=== PATIENT | male | born 1960 | race Caucasian/White ===

== ENCOUNTER 2016-10-13 06:16 | Emergency (ER) | payer OTHER ==
[~2016-10-13] VITALS: Ht 185.4 cm; Wt 116.0 kg
[~2016-10-13 06:16] MED LIST: METO50TA11 PO; RAMI10CA35 PO
[2016-10-13 06:17] VITALS: BP 179/91; PULSE 77; RESP 16; TEMP 97.8; O2SAT 97
[2016-10-13] MEDS ORDERED: TOPR50TA PO (06:25)
[2016-10-13] MEDS ORDERED: SIMV40TA PO (06:25)
--- NOTE | 2016-10-13 06:42 | PD ---
HPI Chief Complaint: Skin Problem Time Seen by Provider: 06:38 Travel History International Travel<30 days: No Contact w/Intl Traveler<30days: No Traveled to known affect area: No History of Present Illness HPI 56-year-old white male presents to emergency department with complaints of a rash to both hands now for the past week. He states that this started off as a small area of redness with small vesicular bumps. He had cover the area with Dermabond. 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 He states that after a case the skin has peeled off revealing weeping sores. He states that is mildly pruritic. He does not recall any new causative agent. He states that he has not changed any new soaps, gloves or any other environmental changes. He is up-to-date with immunizations. He has not been sick recently. He states that he takes ramipril for blood pressure and would like to get a refill. PFSH Past Medical History Narrative Medical Coronary artery disease, ND, hypertension, hypercholesterolemia Cardiac Catheterization: Yes (2006- circumflex EF-55% ) Cardiovascular Problems: Yes Chest Pain: Yes Diminished Hearing: No Hypertension: Yes Tetanus Vaccination: < 5 Years Influenza Vaccination: Yes Past Surgical History Appendectomy: Yes Oral Surgery: Yes (right knee bone spur) Tonsillectomy: Yes Social History Alcohol Use: Yes (occasional) Tobacco Use: No Substance Use: No Allergies-Medications (Allergen,Severity, Reaction): Coded Allergies: No Known Allergies (Unverified , 10/13/16) Reported Meds & Prescriptions Reported Meds & Active Scripts Active Reported Simvastatin 40 Mg Tab 40 Mg PO HS Toprol XL (Metoprolol Succinate) 50 Mg Tab 50 Mg PO DAILY Review of Systems Except as stated in HPI: all other systems reviewed are Neg Physical Exam Narrative GENERAL: This is a well-nourished, well-developed patient, in no apparent distress. SKIN: Patient has a scaly moist dermatitis to both hands over the interdigital web space of the index and thumb. This is bilateral. The skin is mildly erythematous him a broken down and weeping. There are a few scattered surrounding superficial vesicular type lesions. This appears to be a contact type dermatitis. No signs of wound infection. No purulent drainage. HEAD: Atraumatic. Normocephalic. EYES: PERRL, EOMI, no discharge or injection. No scleral icterus. EARS: Clear NOSE: Nasal turbinates appear normal. THROAT: Mucosa pink and moist. Airway patent. NECK: Trachea midline. supple, moves head freely. LUNGS: Clear to auscultation. CV: Regular in rhythm. ABDOMEN: Soft nontender. EXT: No clubbing cyanosis or edema. Data Data Last Documented VS Vital Signs Date Time Temp Pulse Resp B/P Pulse Ox O2 Delivery O2 Flow Rate FiO2 10/13/16 06:23 16 10/13/16 06:17 97.8 77 179/91 97 Room Air MDM Medical Decision Making Medical Screen Exam Complete: Yes Emergency Medical Condition: Yes Medical Record Reviewed: Yes Differential Diagnosis MDM: High Differential diagnoses: Abscess, folliculitis, cellulitis, lymphangitis, abrasion, contact dermatitis Narrative Course This is contact dermatitis The patient cannot determine the dose of his blood pressure medicine. I explained to them that I do not feel comfortable refilling his medication that were not sure of the dose. Diagnosis Primary Impression: Contact dermatitis Qualified Code: L24.9 - Irritant contact dermatitis, unspecified trigger Patient Instructions: General Instructions Additional Instructions: Rest. Daily wound care with soap, water, story cream. Follow-up with employee med in the next 3-5 days. Keep clean and dry. Daily blood pressures. Med/Other Pt SpecificInfo: Prescription(s) given Scripts Betamethasone Dipropionate Aug Topical (Diprolene Topical)0.05% Oint1 Applic TOPICAL BID #15 GM Prov:Dianne Mtz MD 10/13/16 Disposition: 01 DISCHARGE HOME Condition: Stable Ivan Steve Oct 13, 2016 06:42
[2016-10-13] MEDS ORDERED: DIPR0.053 TOPICAL (06:45)
== END 2016-10-13 07:02 | disposition home or self-care (01) ==
LOC: NEPA 06:16
DX: L24.9 Irritant contact dermatitis, unspecified cause (principal)
CPT/HCPCS: 99283

== ENCOUNTER → 2016-12-24 | Outpatient (CLI) | payer OTHER ==
[~2016-12-24] MED LIST changes: +DIPR0.053 TOPICAL; -METO50TA11 PO; -RAMI10CA35 PO; +SIMV40TA PO; +TOPR50TA PO
== END ==
LOC: CLAB 14:53
DX: L25.9 Unspecified contact dermatitis, unspecified cause (principal)
CPT/HCPCS: 36415; 82785; 86003

== ENCOUNTER 2018-09-05 11:02 | Inpatient (IN) ==
[2018-09-05 12:12] LABS: Baso % (Auto) 0.1 % (0.0-2.0); Eos % (Auto) 0.1 % (0.0-4.0); Hemoglobin 15.8 gm/dL (13.0-17.0); Lymph # (Auto) 1.6 th/mm3 (1.0-4.8); Lymph % (Auto) 11.8 % (9.0-44.0); Mean Corpuscular HGB Conc 34.5 % (32.0-36.0); Mean Corpuscular Volume 87.1 fL (80.0-100.0); Mean Platelet Volume 6.6 fL (7.0-11.0); Mono # (Auto) 1.3 th/mm3 (0.0-0.9); Neut # (Auto) 10.2 th/mm3 (1.8-7.7); Platelet Count 257 th/mm3 (150-450); Red Blood Count 5.28 mil/mm3 (4.50-5.90); Red Cell Distribution Width 12.8 % (11.6-17.2); White Blood Count 13.1 th/mm3 (4.0-11.0)
[2018-09-05 12:21] LABS: Activated Partial Thrombo Time 25.8 sec (23.4-31.7); Prothrombin Time 10.5 sec (9.8-11.6)
[2018-09-05 12:33] LABS: Anion Gap 11 meq/L (5-15); Aspartate Aminotransferase 36 U/L (15-37); Blood Urea Nitrogen 18 mg/dL (7-18); Calcium 8.9 mg/dL (8.5-10.1); Chloride 100 meq/L (98-107); Glomerular Filtration Rate 72 mL/min (>89); Glucose,Random 143 mg/dL (74-106); Potassium 3.8 meq/L (3.5-5.1); Sodium 134 meq/L (136-145)
[2018-09-05 12:34] LABS: Alanine Aminotransferase 38 U/L (12-78)
[2018-09-05 12:38] LABS: Alkaline Phosphatase 96 U/L (45-117); Creatine Kinase 99 U/L (39-308); Total Protein 7.5 g/dL (6.4-8.2)
--- NOTE | 2018-09-05 12:47 | XR ---
EXAM DATE: 09/05/2018 12:42 PM EST AGE/SEX: 58 years / Male INDICATIONS: Chest pain started this morning. CLINICAL DATA: This is the patient's initial encounter. Patient reports that signs and symptoms have been present for 1 day and indicates a pain score of 10/10. MEDICAL/SURGICAL HISTORY: Cardiovascular disease. Asthma. Coronary artery stent. COMPARISON: [facility] [place] AP, 11/12/2015. . FINDINGS: A single AP view of the chest demonstrates the lungs to be symmetrically aerated without evidence of mass, infiltrate or effusion. The cardiomediastinal contours are unremarkable. Osseous structures a re intact. CONCLUSION: Negative for acute process Electronically signed by: Yaron Jacobson MD Board Certified Radiologist 09/05/2018 12:45 PM EST
--- NOTE | 2018-09-05 13:07 | ED ---
HPI General Chief Complaint: Chest Pain Stated Complaint: Chest Pain Complaint Time Seen by Provider: 09/05/18 11:33 Source: patient, RN notes reviewed and old records reviewed Mode of arrival: ambulatory Limitations: no limitations History of Present Illness HPI narrative: 58-year-old male presents to the emergency department for evaluation of chest pain. Patient states he woke up around 3 AM, feeling achy all over. 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 He states he got to work and was just not feeling well. Patient states that during his OR case, he feels like his eyes got blurry and then he became nauseous and had to take a break. He states he had some dry heaves about 9 AM. He drinks of water and then went back to the OR. However, then he became diaphoretic and hot. He states he was pale. He ate and drank and then checked his glucose which is 166. He states his blood pressure was really good for him, 130s systolic. Patient states that he left to go home about 1038. He got up to [facility] when he felt some crushing left-sided chest pain in a band around his chest. He turned around and came back here. He states the pain lasted 5-10 minutes and now he is pain-free. He has been pain-free since then. He took 2 full aspirins today. He is not established with a software sales manager. He states that in 2003, he had 2 stents placed. He has history of hypertension, hyperlipidemia. He quit smoking in 2003. Moderate severity. No recent surgery or travel. No hemoptysis. No leg edema. MD complaint: Reports chest pain STEMI Alert: No Onset (ago): hour(s) Duration: now resolved Onset: during rest Pain location: Reports left chest Severity: moderate Quality: Reports tightness and heaviness Pain radiation: Reports none Exacerbating factors: nothing Associated symptoms: Reports nausea and diaphoresis; Denies vomiting, dyspnea, sense of impending doom, syncope, palpitations, fever, cough and leg swelling Treatments prior to arrival chest pain: Reports aspirin Related Data Home Medications Medication Instructions Recorded Confirmed aspirin 325 mg PO DAILY 09/05/18 09/05/18 metoprolol succinate 50 mg PO DAILY 09/05/18 09/05/18 ramipril 10 mg PO DAILY 09/05/18 09/05/18 simvastatin 40 mg PO QPM 09/05/18 09/05/18 Allergies Allergy/AdvReac Type Severity Reaction Status Date / Time latex Allergy Hives Verified 09/05/18 11:22 Review of Systems ROS: all other systems reviewed are negative [facility] Medical History Medical History Hyperlipemia (Acute) Hypertension (Acute) Surgical History Surgical History H/O adenoidectomy (Acute) History of appendectomy (Acute) Hx of tonsillectomy (Acute) Stented coronary artery (Acute) Social History Social History Substance History: No History of Abuse Second Hand Smoke Exposure: No Smoking Status: Former smoker How Often Do You Have a Drink Containing Alcohol: Never Recent Travel in [facility] within the Last 8 Weeks: No Recent Out of Country Travel within the Last 8 Weeks: No Immunization History Tetanus Immunization: >5 Years Exam Narrative Exam Narrative: GENERAL: Well-nourished, well-developed male patient, ambulatory. Afebrile. SKIN: Focused skin assessment warm/dry. HEAD: Normocephalic. Atraumatic. ENT: Mucosa pink and moist. No erythema or exudates. No uvular edema. No uvular , palatal, or tonsillar deviation. Airway patent. Nasal turbinates appear normal without nasal blood, purulent drainage or septal hematoma. Bilateral tympanic membranes clear without erythema or perforation. EYES: No scleral icterus. No injection or drainage. NECK: Supple, trachea midline. No JVD or lymphadenopathy. CARDIOVASCULAR: Regular rate and rhythm without murmurs, gallops, or rubs. Bilateral radial and pedal pulses are 2+ RESPIRATORY: Breath sounds equal bilaterally. No accessory muscle use. Patient has some mild expiratory wheezes noted throughout. GASTROINTESTINAL: Abdomen soft, non-tender, nondistended. MUSCULOSKELETAL: No cyanosis, or edema. BACK: Nontender without obvious deformity. No CVA tenderness. Course Initial Documented Vital Signs Temperature 98.7 F 09/05/18 11:23 Pulse Rate 105 H 09/05/18 11:23 Respiratory Rate 18 09/05/18 11:23 Blood Pressure 181/96 H 09/05/18 11:23 Pulse Oximetry 96 01/07/19 11:23 Last Documented Vital Signs Temperature 98.7 F 09/05/18 11:23 Pulse Rate 90 09/05/18 12:24 Respiratory Rate 18 09/05/18 12:24 Blood Pressure 181/96 H 09/05/18 11:23 Pulse Oximetry 96 09/05/18 12:08 Medical Decision Making MARIBEL Attestation MARIBEL supervised visit: Yes Attestation: I, Dr. Guy, have reviewed the advance practice practitioner's documentation and am in agreement, met with the patient face to face, made the diagnosis, and the medical decision making was done by me. *My assessment and Findings: Patient had 5-10 minutes of suspicious chest discomfort. However he is pain-free now and initial workup is negative. He has known CAD. He will be of 23-hour observation in the chest pain center. He is agreeable. MDM Narrative Medical decision making narrative: 58-year-old male presents to the emergency department for evaluation of chest pain. His chest pain is now resolved. IV access obtained. EKG, CBC, CMP, magnesium, CK, troponin, PTT, PT/INR, chest x- ray are ordered and pending. Patient is given DuoNeb x1 for wheezing. He reports history of asthma. He denies any shortness of breath. EKG shows sinus rhythm, heart rate 83, no acute ST changes. CBC shows mild leukocytosis 13.1. CMP shows no acute abnormality. Magnesium is 2.0. CK is 99. Troponin is less than 0.02. PTT is 25.8. PT is 10.5. INR is 1.0. Chest x-ray is negative for acute process. Patient has been monitored in the emergency department has remained chest pain- free. He will be admitted to the chest pain center for further evaluation. The patient agrees to this. Medical Screen Exam Complete: Yes Emergency Medical Condition: Yes Differential Diagnosis Differential Diagnosis: ACS versus pneumonia versus pneumothorax versus versus chest wall pain versus anxiety versus PE Medical Records Medical records reviewed: Yes I reviewed the patient's medical records. Lab Data Result diagrams: 09/05/18 12:00 09/05/18 12:00 Lab Results 09/05/18 09/05/18 09/05/18 Range/Units 12:00 12:00 12:00 WBC 13.1 H (4.0-11.0) th/mm3 RBC 5.28 (4.50-5.90) mil/mm3 Hgb 15.8 (13.0-17.0) gm/dL Hct 46.0 (39.0-51.0) % MCV 87.1 (80.0-100.0) fL MCH 30.0 (27.0-34.0) pg MCHC 34.5 (32.0-36.0) % RDW 12.8 (11.6-17.2) % Plt Count 257 (150-450) th/mm3 MPV 6.6 L (7.0-11.0) fL Neut % (Auto) 78.0 H (16.0-70.0) % Lymph % (Auto) 11.8 (9.0-44.0) % [place] % (Auto) 10.0 H (0.0-8.0) % Eos % (Auto) 0.1 (0.0-4.0) % Baso % (Auto) 0.1 (0.0-2.0) % Neut # (Auto) 10.2 H (1.8-7.7) th/mm3 Lymph # (Auto) 1.6 (1.0-4.8) th/mm3 [place] # (Auto) 1.3 H (0.0-0.9) th/mm3 Eos # (Auto) 0.0 (0.0-0.4) th/mm3 Baso # (Auto) 0.0 (0.0-0.2) th/mm3 WBC Differential . Differential Comment Auto diff final PT 10.5 (9.8-11.6) sec INR 1.0 Ratio APTT 25.8 (23.4-31.7) sec Sodium 134 L (136-145) meq/L Potassium 3.8 (3.5-5.1) meq/L Chloride 100 (98-107) meq/L Carbon Dioxide 23.0 (21.0-32.0) meq/L Anion Gap 11 (5-15) meq/L BUN 18 (7-18) mg/dL Creatinine 1.06 (0.60-1.30) mg/dL Estimated GFR 72 L (>89) mL/min Random Glucose 143 H (74-106) mg/dL Calcium 8.9 (8.5-10.1) mg/dL Magnesium 2.0 (1.5-2.5) mg/dL Total Bilirubin 1.0 (0.2-1.0) mg/dL AST 36 (15-37) U/L ALT 38 (12-78) U/L Alkaline Phosphatase 96 (45-117) U/L Total Creatine Kinase 99 (39-308) U/L Troponin I Less than 0.02 L (0.02-0.05) ng/mL Total Protein 7.5 (6.4-8.2) g/dL Albumin 4.0 (3.4-5.0) g/dL Imaging Data Radiologist's impression: Chest X-Ray 09/05/18 11:47 CONCLUSION: Negative for acute process Discharge Plan Discharge Disposition Patient Disposition: ED Admit(ED Internal Use Only) Discharge Details Diagnosis: Chest pain Physicians Team ED Provider: Heladio Guy ED Midlevel Provider: Genevieve Cherry Primary Care Provider: UNKNOWN, Rxs /Orders / Referrals /Forms Prescriptions: No Action aspirin 325 mg Tablet 325 mg PO DAILY RF: 0 metoprolol succinate 50 mg Tablet Extended Release 24 Hr 50 mg PO DAILY RF: 0 simvastatin 40 mg Tablet 40 mg PO QPM RF: 0 ramipril 10 mg Capsule 10 mg PO DAILY RF: 0 Discharge Instructions Patient Printed Instructions: Chest Pain (ED) Status ED Status: With Doctor
[2018-09-05] MEDS ORDERED: Acetaminophen 500 MG Tablet PO PRN (14:08)
--- NOTE | 2018-09-05 14:53 | P.HPCA ---
History of Present Illness Primary Care Physician: UNKNOWN Chief Complaint: Chest pain History of Present Illness: 58-year-old male with known coronary artery disease, x2 cardiac stents, and hypertension presents emergency room for further evaluation of chest pain. 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 Prior to surgical case reported nausea and "dry heaving." During a surgical case initially felt lightheaded with blurred vision, requiring him to walked out of the OR. Symptoms resolved within a few minutes. Upon returning to OR reports becoming diffusely diaphoretic and nauseous. Denies any chest pain during with above symptoms. It was at this time, he was sent to Er for further evaluation. Initially decided not to go to ER and walked his car. Once in car developed substernal crushing pressure. Described as a tight band around the center of his chest. At this time he walked to ER for further evaluation. No associated symptoms of nausea, vomiting, dyspnea, or diaphoresis. Duration 10 minutes. No precipitating or relieving factors. States discomfort resolved on its own prior to medication given in ER. States EKG was completed during time of chest pain. Denies similar pain in the past, did not remind him of past cardiac pain when x2 cardiac stents where placed in 2003. Does not follow with a golf course assistant. No further chest pain and currently chest pain free. Past cardiac testing 11/12/15 Lexiscan Conclusion: Decreased ejection fraction of 44% with possible dilated chamber. Some decreased perfusion to anterior wall without dyskinetic or dysrhythmic areas. (Dr. Montes reviewed the images of patient's Lexiscan and found to be nonischemic and was discharged home increasing Lamisil to 10 mg daily.) 2003 x2 cardiac stents in circumflex and diagonal Social history Known hypertension and coronary artery disease. Prescribed a moderate dose cholesterol medication. Denies diabetes. Former smoker, quit 2003. 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 - Diagnosis (1) Chest pain, rule out acute myocardial infarction (2) Coronary artery disease (3) Hypertension Review of Systems All other systems reviewed negative except as stated in HPI [facility] - History History Provided By: Patient - Medical History Medical History: Medical History (Last Updated 09/05/18 @ 17:00 by DODIE Guidry) Coronary artery disease Hyperlipemia Hypertension - Surgical History Surgical History: Surgical History (Last Reviewed 09/05/18 @ 17:00 by DODIE Guidry) H/O adenoidectomy History of appendectomy Hx of tonsillectomy Stented coronary artery - Tobacco History Second Hand Smoke Exposure: No Smoking Status: Former smoker (quit 2003) - Alcohol History How Often Do You Have a Drink Containing Alcohol: Never - Substance Use History Substance History: No History of Abuse - Travel History Recent Travel in the [place] Within the Last 8 Weeks: No Recent Travel Out of the Country Within the Last 8 Weeks: No - Immunization History Tetanus Immunization: >5 Years Medications and Allergies Active Medications: Active Medications Acetaminophen (Tylenol) 500 mg PO Q4H PRN PRN Reason: HEADACHE Nitroglycerin (Nitrostat Sl) 0.4 mg SL Q5M PRN PRN Reason: CHEST PAIN Ondansetron HCl (Zofran Inj) 4 mg IV.PUSH Q6H PRN PRN Reason: NAUSEA Sodium Chloride (Ns Flush) 2 ml IV.FLUSH UNSCH PRN PRN Reason: FLUSH AFTER USING IV ACCESS Sodium Chloride (Ns Flush) 2 ml IV.FLUSH BID BINH Allergies Allergy/AdvReac Type Severity Reaction Status Date / Time latex Allergy Hives Verified 09/05/18 11:22 Home Medications Medication Instructions Recorded Confirmed Type aspirin 325 mg PO DAILY 09/05/18 09/05/18 History metoprolol succinate 50 mg PO DAILY 09/05/18 09/05/18 History ramipril 10 mg PO DAILY 09/05/18 09/05/18 History simvastatin 40 mg PO QPM 09/05/18 09/05/18 History Exam Vital signs: Vital Signs 09/05/18 11:23 09/05/18 12:08 09/05/18 12:24 Temperature 98.7 F Pulse Rate 105 H 96 H 90 Respiratory Rate 18 18 Blood Pressure 181/96 H Pulse Oximetry 96 96 09/05/18 14:50 Temperature Pulse Rate 92 H Respiratory Rate 18 Blood Pressure 145/68 H Pulse Oximetry 98 Intake & Output 09/04/18 09/05/18 09/05/18 18:59 06:59 18:59 Weight 117.934 kg Narrative: GENERAL: Alert WN, WD, NAD, pleasant, obese, male HEAD: NC, AT EYES: Sclera clear, conjunctiva without injection, pupils equal and round ENT: Mucous membranes pink and moist NECK: Supple, no masses, trachea midline CV: RRR, without murmur, rub, gallop RESP: Clear lungs throughout bilateral, no crackles, wheeze, rhonchi, symmetrical chest rise, nonlabored, able to speak in full sentences ABD: Soft, NT, ND, no masses, positive bowel tones EXT: Pulses +2x4, no dependent edema MS: Normal tone x4 extremities, nontender, no obvious deformities, full range of motion NEURO: Motor strength 5/5, gait WNL PSYCH: A+O x3, pleasant affect, appropriate speech, mood, insight and judgment SKIN: Normal turgor, normal texture, no lesions, no rashes, brisk cap refill, even hair distribution Results 09/05/18 12:00 09/05/18 12:00 Cardiac Enzymes 09/05/18 Range/Units 12:00 AST 36 (15-37) U/L Troponin I Less than 0.02 L (0.02-0.05) ng/mL Coagulation 09/05/18 Range/Units 12:00 PT 10.5 (9.8-11.6) sec APTT 25.8 (23.4-31.7) sec CBC 09/05/18 Range/Units 12:00 WBC 13.1 H (4.0-11.0) th/mm3 RBC 5.28 (4.50-5.90) mil/mm3 Hgb 15.8 (13.0-17.0) gm/dL Hct 46.0 (39.0-51.0) % Plt Count 257 (150-450) th/mm3 Neut # (Auto) 10.2 H (1.8-7.7) th/mm3 Lymph # (Auto) 1.6 (1.0-4.8) th/mm3 [place] # (Auto) 1.3 H (0.0-0.9) th/mm3 Eos # (Auto) 0.0 (0.0-0.4) th/mm3 Baso # (Auto) 0.0 (0.0-0.2) th/mm3 Comprehensive Metabolic Panel 09/05/18 Range/Units 12:00 Sodium 134 L (136-145) meq/L Potassium 3.8 (3.5-5.1) meq/L Chloride 100 (98-107) meq/L Carbon Dioxide 23.0 (21.0-32.0) meq/L BUN 18 (7-18) mg/dL Creatinine 1.06 (0.60-1.30) mg/dL Calcium 8.9 (8.5-10.1) mg/dL AST 36 (15-37) U/L ALT 38 (12-78) U/L Alkaline Phosphatase 96 (45-117) U/L Total Protein 7.5 (6.4-8.2) g/dL Albumin 4.0 (3.4-5.0) g/dL Intake and Output 09/04/18 09/05/18 09/05/18 22:59 06:59 14:59 Other: Weight 117.934 kg Patient Weight 09/06/18 06:59 Weight 117.934 kg - Imaging and Cardiology Imaging: Impressions Chest X-Ray 09/05/18 11:47 CONCLUSION: Negative for acute process EKG interpretations - EKG EKG results cardiology: sinus rhythm, normal axis, normal QRS, normal ST/T Caprini VTE Risk Assessment Caprini VTE Risk Assessment: No/Low Risk (score <= 1) Caprini Risk Assessment Model: Point Value = 1 Point Value = 2 Point Value = 3 Point Value = 5 Age 41-60 Minor surgery BMI > 25 kg/m2 Swollen legs Varicose veins or History of unexplained or recurrent spontaneous Oral contraceptives or hormone replacement Sepsis (< 1 month) Serious lung disease, including pneumonia (< 1 month) Abnormal pulmonary function Acute myocardial infarction Congestive heart failure (< 1 month) History of inflammatory bowel disease Medical patient at bed rest Age 61-74 Arthroscopic surgery Major open surgery (> 45 min) Laparoscopic surgery (> 45 min) Malignancy Confined to bed (> 72 hours) Immobilizing plaster cast Central venous access Age >= 75 History of VTE Family history of VTE Factor V Leiden Prothrombin [id number] Lupus anticoagulant Anticardiolipin antibodies Elevated serum homocysteine Heparin-induced thrombocytopenia Other congenital or acquired thrombophilia Stroke (< 1 month) Elective arthroplasty Hip, pelvis, or leg fracture Acute spinal cord injury (< 1 month) Prophylaxis Regimen: Total Risk Factor Score Risk Level Prophylaxis Regimen 0-1 Low Early ambulation 2 Moderate Order ONE of the following: *Sequential Compression Device (SCD) *Heparin 5000 units SQ BID 3-4 Higher Order ONE of the following medications: *Heparin 5000 units SQ TID *Enoxaparin/Lovenox 40 mg SQ daily (WT < 150 kg, CrCl > 30 mL/min) *Enoxaparin/Lovenox 30 mg SQ daily (WT < 150 kg, CrCl > 10-29 mL/min) *Enoxaparin/Lovenox 30 mg SQ BID (WT < 150 kg, CrCl > 30 mL/min) AND/OR *Sequential Compression Device (SCD) 5 or more Highest Order ONE of the following medications: *Heparin 5000 units SQ TID (Preferred with Epidurals) *Enoxaparin/Lovenox 40 mg SQ daily (WT < 150 kg, CrCl > 30 mL/min) *Enoxaparin/Lovenox 30 mg SQ daily (WT < 150 kg, CrCl > 10-29 mL/min) *Enoxaparin/Lovenox 30 mg SQ BID (WT < 150 kg, CrCl > 30 mL/min) AND *Sequential Compression Device (SCD) Assessment and Plan - Assessment (1) Chest pain, rule out acute myocardial infarction Code(s): R07.9 - Chest pain, unspecified Status: Acute Plan: Admitted chest pain center. Seen and evaluated by Dr. Rolan Doherty. EKG completed during acute chest discomfort and did not suggest ischemia. Proceed with exercise cardiac testing after 2 sets of negative troponin and EKGs. Discussed plan of care with patient who is agreeable to plan of care. Discussed mild leukocytosis identified on lab studies and to follow-up with primary care provider. (2) Coronary artery disease Code(s): I25.10 - Atherosclerotic heart disease of [place] coronary artery without angina pectoris Status: Chronic Plan: Continue aspirin, metoprolol, and simvastatin. Strongly encouraged with a golf course assistant. Discussed with primary care provider changing simvastatin to a high dose statin regimen such as atorvastatin. (3) Hypertension Code(s): I10 - Essential (primary) hypertension Status: Chronic Plan: Continue ramipril. Encouraged low-sodium diet, increasing daily activity, weight loss, and discussed importance of tight blood pressure control. (2) Coronary artery disease Qualifiers: Coronary Disease-Associated Artery/Lesion type: [place] artery [place] vs. transplanted heart: [place] heart Associated angina: without angina Qualified Code(s): I25.10 - Atherosclerotic heart disease of [place] coronary artery without angina pectoris (3) Hypertension Qualifiers: Hypertension type: unspecified Qualified Code(s): I10 - Essential (primary) hypertension
[2018-09-05 15:50] LABS: Creatine Kinase 83 U/L (39-308)
[2018-09-05 19:19] LABS: Creatine Kinase 80 U/L (39-308)
--- NOTE | 2018-09-05 20:51 | ECG ---
Date Performed: 09/05/2018 Time Performed: 11:12:37 PTAGE: 58 years EKG: Sinus rhythm NORMAL ECG INTERPRETATION BASED ON A DEFAULT AGE OF 40 YEARS NO PREVIOUS TRACING DOCTOR: Kel Mclaughlin Interpretating Date/Time 09/05/2018 20:48:57
[2018-09-05] MEDS ORDERED: Regadenoson Inj 0.4 MG/5 ML Syringe IV.PUSH SCH (22:00)
[2018-09-05] MEDS: Morphine Inj 4 MG/ML Vial IV.PUSH PRN (23:16)
[2018-09-06] MEDS ORDERED: Metoprolol Tartrate 25 MG Tablet PO SCH (05:00)
--- NOTE | 2018-09-06 08:28 | P.CONCA ---
History of Present Illness Service: Cardiology Consult date: 09/06/18 Reason for Consult: Chest pain Primary Care Provider: UNKNOWN Chief Complaint: Chest pain History of Present Illness: This is a very nice 58-year-old male with history of coronary artery disease status post percutaneous coronary intervention to the left circumflex coronary artery and diagonal branch back in 2003. 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 Patient stated that he did not feel well and was told to go ahead and go home. He developed recurrent symptoms just after leaving the parking lot, he returned back to the emergency department for evaluation. At the time of evaluation he was diaphoretic with nausea. Electrocardiogram showed no significant ischemic changes. Initial cardiac biomarkers were unremarkable. Patient's last Lexiscan showed mildly reduced left ventricular systolic function without ischemia. Patient was potentially scheduled for a repeat Lexiscan here this morning. Given the patient's profound symptoms and history, patient was requesting consideration for cardiac catheterization instead. I was consulted for consideration of performing the procedure. Review of Systems All other systems reviewed negative except as stated in HPI PMFSH - History History Provided By: Patient - Medical History Medical History: Medical History (Last Updated 09/05/18 @ 17:00 by DODIE Guidry) Coronary artery disease Hyperlipemia Hypertension - Surgical History Surgical History: Surgical History (Last Reviewed 09/05/18 @ 17:00 by DODIE Guidry) H/O adenoidectomy History of appendectomy Hx of tonsillectomy Stented coronary artery - Tobacco History Second Hand Smoke Exposure: No Tobacco Use In Past 30 Days: No Smoking Status: Former smoker (quit 2003) Tobacco Type: Cigarettes - Alcohol History How Often Do You Have a Drink Containing Alcohol: Never - Substance Use History Substance History: No History of Abuse - Travel History Recent Travel in the [place] Within the Last 8 Weeks: No Recent Travel Out of the Country Within the Last 8 Weeks: No - Immunization History Tetanus Immunization: >5 Years Medications and Allergies Active Medications: Active Medications Acetaminophen (Tylenol) 500 mg PO Q4H PRN PRN Reason: HEADACHE Albuterol (Albuterol Neb (Prn)) 2.5 mg NEB ONCE PRN PRN Reason: SHORTNESS OF BREATH Stop: 09/07/18 18:57 Last Admin: 09/05/18 21:58 Dose: 2.5 mg Aspirin (Aspirin) 325 mg PO DAILY ON LICENSE OF [facility] Last Admin: 09/06/18 08:15 Dose: 325 mg Metoprolol Succinate (Toprol Xl) 50 mg PO DAILY ON LICENSE OF [facility] Last Admin: 09/06/18 08:15 Dose: 50 mg Morphine Sulfate (Morphine Inj) 5 mg IV.PUSH Q4H PRN PRN Reason: FOR PAIN 1-10 Last Admin: 09/05/18 23:16 Dose: 5 mg Ondansetron HCl (Zofran Inj) 4 mg IV.PUSH Q6H PRN PRN Reason: NAUSEA Pravastatin Sodium (Pravachol) 80 mg PO QPM ON LICENSE OF [facility] Ramipril (Altace) 10 mg PO DAILY ON LICENSE OF [facility] Last Admin: 09/06/18 08:16 Dose: 10 mg Sodium Chloride (Ns Flush) 2 ml IV.FLUSH UNSCH PRN PRN Reason: FLUSH AFTER USING IV ACCESS Sodium Chloride (Ns Flush) 2 ml IV.FLUSH BID ON LICENSE OF [facility] Last Admin: 09/06/18 08:17 Dose: 2 ml Allergies Allergy/AdvReac Type Severity Reaction Status Date / Time latex Allergy Hives Verified 09/05/18 11:22 Home Medications Medication Instructions Recorded Confirmed Type aspirin 325 mg PO DAILY 09/05/18 09/05/18 History metoprolol succinate 50 mg PO DAILY 09/05/18 09/05/18 History ramipril 10 mg PO DAILY 09/05/18 09/05/18 History simvastatin 40 mg PO QPM 09/05/18 09/05/18 History Exam Vital signs: Vital Signs 09/05/18 11:23 09/05/18 12:08 09/05/18 12:24 Temperature 98.7 F Pulse Rate 105 H 96 H 90 Respiratory Rate 18 18 Blood Pressure 181/96 H Pulse Oximetry 96 96 09/05/18 14:50 09/05/18 16:00 09/05/18 20:00 Temperature 98.6 F 99.1 F Pulse Rate 92 H 90 92 H Respiratory Rate 18 18 20 Blood Pressure 145/68 H 148/73 H 138/65 Pulse Oximetry 98 96 09/05/18 21:44 09/05/18 22:00 09/05/18 22:30 Temperature Pulse Rate 79 83 106 H Respiratory Rate 15 Blood Pressure 192/91 H Pulse Oximetry 97 09/05/18 22:35 09/06/18 03:22 09/06/18 07:31 Temperature 98.3 F Pulse Rate 103 H 87 Respiratory Rate 20 Blood Pressure 142/78 H 138/73 Pulse Oximetry 96 96 09/06/18 07:33 Temperature 98.0 F Pulse Rate 101 H Respiratory Rate 20 Blood Pressure 141/77 H Pulse Oximetry 96 Intake & Output 09/05/18 09/06/18 09/06/18 18:59 06:59 18:59 Weight 117.934 kg Other: # Voids 1 - Constitutional no acute distress - Routine HEENT Exam Head: Present: normocephalic ENT: Present: mucous membranes moist - Routine Neck Exam Absent: JVD - Routine Respiratory Exam Present: CTA bilaterally - Routine Cardiovascular Exam Present: RRR. Absent: murmur - Routine Abdominal Exam Present: soft, normoactive bowel sounds - Routine Extremities Exam Present: pulses intact. Absent: edema - Routine Neurological Exam Present: alert, oriented X3, CN II-XII intact. Absent: sensory deficit, motor deficit Results 09/05/18 12:00 09/05/18 12:00 Cardiac Enzymes 09/05/18 09/05/18 09/05/18 Range/Units 12:00 15:00 18:02 AST 36 (15-37) U/L Troponin I Less than 0.02 L Less than 0.02 L Less than 0.02 L (0.02-0.05) ng/mL 09/05/18 Range/Units 22:46 AST (15-37) U/L Troponin I Less than 0.02 L (0.02-0.05) ng/mL Coagulation 09/05/18 Range/Units 12:00 PT 10.5 (9.8-11.6) sec APTT 25.8 (23.4-31.7) sec CBC 09/05/18 Range/Units 12:00 WBC 13.1 H (4.0-11.0) th/mm3 RBC 5.28 (4.50-5.90) mil/mm3 Hgb 15.8 (13.0-17.0) gm/dL Hct 46.0 (39.0-51.0) % Plt Count 257 (150-450) th/mm3 Neut # (Auto) 10.2 H (1.8-7.7) th/mm3 Lymph # (Auto) 1.6 (1.0-4.8) th/mm3 [place] # (Auto) 1.3 H (0.0-0.9) th/mm3 Eos # (Auto) 0.0 (0.0-0.4) th/mm3 Baso # (Auto) 0.0 (0.0-0.2) th/mm3 Comprehensive Metabolic Panel 09/05/18 Range/Units 12:00 Sodium 134 L (136-145) meq/L Potassium 3.8 (3.5-5.1) meq/L Chloride 100 (98-107) meq/L Carbon Dioxide 23.0 (21.0-32.0) meq/L BUN 18 (7-18) mg/dL Creatinine 1.06 (0.60-1.30) mg/dL Calcium 8.9 (8.5-10.1) mg/dL AST 36 (15-37) U/L ALT 38 (12-78) U/L Alkaline Phosphatase 96 (45-117) U/L Total Protein 7.5 (6.4-8.2) g/dL Albumin 4.0 (3.4-5.0) g/dL Intake and Output 09/05/18 09/06/18 09/06/18 22:59 06:59 14:59 Other: # Voids 1 - Imaging and Cardiology Imaging: Impressions Chest X-Ray 09/05/18 11:47 CONCLUSION: Negative for acute process EKG interpretations - Dysrhythmias Sinus rhythms and dysrhythmias: sinus rhythm Assessment and Plan - Assessment (1) Unstable angina Code(s): I20.0 - Unstable angina Status: Acute - Plan Unstable angina Risks, benefits, and alternatives were discussed with the patient. Patient understood and consented to proceed with cardiac catheterization given intermediate pretest likelihood for obstructive coronary disease. Continue guideline directed medical therapy. We will approach from a right radial approach. If the cardiac catheterization is unremarkable, patient will have further noncardiac workup prior to discharge.
[2018-09-06] MEDS ORDERED: Heparin/NS PF Inj 1,000 ML ONE (08:37)
[2018-09-06] MEDS ORDERED: Heparin 10,000 UNITS/10 ML Vial (for IV use) ONE (08:38)
[2018-09-06] MEDS ORDERED: fentaNYL Citrate Inj 100 MCG/2 ML Ampul ONE (08:38)
[2018-09-06] MEDS ORDERED: Aspirin 325 MG Tablet PO SCH (09:00)
[2018-09-06] MEDS ORDERED: Ramipril 5 MG Capsule PO SCH (09:00)
[2018-09-06] MEDS ORDERED: Iohexol 350 MG/ML 50 ML Vial (for Cath Lab) IVCONTRAST ONE (09:10)
--- NOTE | 2018-09-06 09:26 | P.PCN ---
Date of procedure: 09/06/18 Pre-op diagnosis: Unstable angina Procedure: envelope press operator: Antoine Cote MD Procedures performed: 1. Fluoroscopy with interpretation 2. Coronary angiography 3. Left heart catheterization Methods: Risks, benefits, and alternatives were discussed with the patient. Patient understood and consented to the procedure. Patient was brought into the cardiac catheterization lab and placed on the catheterization table. The patient's right wrist was prepped and draped in a sterile fashion. The right wrist was anesthetized with 1% lidocaine. Right wrist was cannulated and a 6 [place] 11 cm sheath was placed without difficulty. 200 mcg of intra-arterial nitroglycerin was administered and 5000 units of intravenous heparin. Left heart catheterization: Intra-ventricular hemodialysis of 106/1 mmHg of the left ventricle end- diastolic pressure of 5 mmHg. Coronary angiography: The left main coronary artery was selectively engaged with a [address] [place] [address] catheter. The right coronary circulation was selectively engaged with a [address] [place] [address] catheter. 1. Left main coronary artery has distal stenosis involving the trifurcation, estimated severity of 40%. 2. Left anterior descending coronary artery has an ostial stenosis of approximately 70%. There is a large diagonal branch with a 90-95% ostial stenosis present. The remainder left anterior descending coronary has minor luminal irregularities 3. Left circumflex coronary artery has an ostial 70% stenosis. The first obtuse marginal branch is small caliber size with 50% stenosis. 4. Right coronary is a dominant vessel giving rise to the posterior descending branch. The right coronary artery has a mid stenosis between 60 and 70%. Conclusions: 1. Three-vessel [place] coronary artery disease 2. Normal left-sided filling pressures Plan: Guideline directed medical therapy. Sheath removed and Hemoband applied. Monitor for postprocedural complications. Consult cardiothoracic surgery for consideration of bypass surgery. The trifurcation of the distal left main would be very difficult to treat percutaneously, particularly involving the large diagonal branch. Coronary artery bypass surgery is the patient's best option. We will obtain transthoracic echocardiogram.
--- NOTE | 2018-09-06 09:27 | CATHPROC ---
Artsy HIS Report Study Information Study Number Admission Scheduled Start Study Start [id number] Sep 05 2018 1:13PM 09/06/2018 Sep 06 2018 8:18AM [place] Service Cath Endovascular Study Admit Source Facility Department Emergency department [facility] - Long Chain Dyeing Machine Operator Physician and Clinical Staff Initial Anthony Zimmerman Tubing Machine Tender Roz Jean,RN Recorder Augusto Hoyt,RT(R) Scrub Gregory Morin,RT(R) Procedures Performed Procedure Location (Site) Vessel Name Coronary Angiograms LCA Left Coronary Coronary Angiograms RCA Right Coronary L Heart Cath Equipment Time Bridge Ironworker Helper Description Size Mfg Part Number Used/Scraped TRANSDUCER, TRUWAVE [id number] 08:20 MILLS AVENDANO * Used W/STOCKCOCK *[id number] *[id number] *[id number] 08:20 [employer] BLANKET,WARM AIR CCL * Used *[id number] 08:20 [employer] PACK, CCL CUSTOM * Used *[id number] 08:20 [employer] SUPPORT, ARTERIAL ADULT [id number] *[id number] Used BAND, RADIAL COMPRESSION TR [id number] 09:18 [employer] 24CM Used SHORT 24 *[id number] SHEATH, FR6 RADIAL PRELUDE 08:20 [employer] FR 6 [id number] Used EASE 11CM [id number] 08:20 [employer] WIRE, EXCHANGE 260CM 3MMJ 260CM Used *[id number] 08:20 NAMIC MANIFOLD, 4 PORT * Used *[id number] 08:20 NYCOMED OMNIPAQUE, 350 MG, 150ML 150ML [id number] Used History: Risk Factors Family History of Hypertension Dyslipidemia Previous KS Previous Heart Failure Premature CAD Yes Yes Yes Yes No Prior Valve Prior PCI Prior PCIDate Prior CABG Surgery No Yes 08/30/2003 No Cerebrovascular Peripheral Artery Chronic Lung On Dialysis Diabetes Disease Disease Disease No No No Yes No History: Symptoms/Diagnosis Selection Items Chest pain History: Stress Tests Stress or Imaging Studies Performed No History: Other Current Smoker Method Quit Packs a Day Years Used Pack Years No Cigarettes 14 Years Ago 1 30 30 Labs Hgb (g/dl) Hct (%) WBC (l/cumm) Platelets (thousands) 11.60-17.00 35.00-51.00 4.00-11.00 150.00-450.00 15.8 46 13.1 257 Glucose (mg/dl) BUN (mg/dl) Creatinine (mg/dl) BUN:Creatinine (1:x) 74.00-106.00 7.00-18.00 0.50-1.30 10.00-20.00 143 18 1.0 18 Na (meq/l) K (meq/l) 136.00-145.00 3.50-5.10 134 3.8 INR (PTT:PT) 0.90-1.10 1 Troponin I (ng/ml) CPK-MB (ng/ML) 0.02-0.05 0.50-3.60 0.02 Not Drawn Medication Medication Total Dose (Bolus/Oral) Medication Total Dosage/Unit 1% XYLOCAINE 5 mL FENTANYL 50 mcg HEPARIN 5000 units NTG (IC) 200 mcg VERSED 2 mg Medications (Bolus/Oral) Medication Time Given Dosage/Unit Administered By Reason VERSED 09/06/2018 9:00:49 AM 2 mg Roz Jean Patient arrived on 2 mg VERSED given by Roz Jean RN in Right Antecubital via Peripheral IV. O rdered by Anthony Cote. FENTANYL 09/06/2018 9:01:01 AM 50 mcg Roz Jean Patient arrived on 50 mcg FENTANYL given by Roz Jean RN in Right Antecubital via Peripheral I V. Ordered by Anthony Cote. 1% XYLOCAINE 09/06/2018 9:01:25 AM 5 mL Anthony Cote 5 mL 1% XYLOCAINE given in lab by Anthony Cote in Right Radial via Subcutaneous. Ordered by Anthony Cote. NTG (IC) 09/06/2018 9:04:21 AM 200 mcg Anthony Cote 200 mcg NTG (IC) given in lab by Anthony Cote via Intra-arterial. Ordered by Anthony Cote. HEPARIN 09/06/2018 9:05:07 AM 5000 units Roz Jean 5000 units HEPARIN given in lab by Roz Jean, MOE in Right Antecubital via Peripheral IV. Ordere d by Anthony Cote. Medication (Drip) Medication Time Given Dosage/Unit Concentration/Unit Diluent (ml) Solutio n IV Solutions 09/06/2018 8:40:39 AM 0 mL (IV) 500 NaCl .9 Patient arrived on IV Solutions in Right Antecubital via Peripheral IV. Pump/Drip Flow = 20 ml/hr usi ng NaCl .9. Initial Case Assessment Cardiovascular HR Rhythm NIBP Chest Pain 87 sr 146/80 0 Edema Present Skin color Skin None Normal Warm Dry Circulatory - Right Pulses Posterior Tibial Femoral Radial 2 1 2 Scale (0,1,2,3,4,d) Circulatory - Left Pulses Posterior Tibial Femoral Radial 1 Scale (0,1,2,3,4,d) Neurological State Oriented to time-place- Alert Moves all extremities person Respiration - General Respiration Rate SpO2 (%) O2 (lpm) (B/min) 18 95 0 Final Case Assessment Cardiovascular HR Rhythm NIBP Chest Pain 95 sr 115/74 0 Edema Present Skin color Skin None Normal Warm Dry Circulatory - Right Pulses Posterior Tibial Femoral Radial 2 1 2 Scale (0,1,2,3,4,d) Circulatory - Left Pulses Posterior Tibial Femoral Radial 1 Scale (0,1,2,3,4,d) Neurological State Oriented to time-place- Alert Moves all extremities person Respiration - General Respiration Rate SpO2 (%) O2 (lpm) (B/min) 18 95 0 Chronological Log Time Study Chronological Log 8:30:48 Patient arrived via Bed. Positive Allens test performed by Augusto Hoyt. 8:30:49 Patient Name, D.O.B, / Armband Verified By R.N. 8:30:50 Consent signed by the physician and the patient and verified by the Long Chain Dyeing Machine Operator staff. 8:30:51 Pre-op and post- op instructions given; patient acknowledges understanding of instructions. 8:30:59 Verbal Stimulation=2 Physical Stimulation=2 Airway=2 Respiration=2 TOTAL=8. (0=absent, 1=li mited, 2=present) 8:31:10 Presedation assessment performed by Long Chain Dyeing Machine Operator RN. 8:31:13 Patient has been NPO for More than 6Hrs. 8:31:15 Skin Breakdown-none present per patient. 8:31:26 Patient Warmer Placed on the Table. 8:40:24 A # 20 IV was noted in the Antecubital (right). Grade = 0 8:40:39 Patient arrived on IV Solutions in Right Antecubital via Peripheral IV. Pump/Drip Flow = 20 ml/hr using NaCl .9. Vitals capture started with the following parameters, Patient=Adult, Interval=5 min, Initial P uqebpkh=788 mmHg, 8:43:06 Deflation Rate=5 mmHg, Cuff placed on Right Arm 8:43:45 HR=94 bpm, UADW=072/80 mmhg, SpO2=94.0 %, Resp=18 B/min, Chen=2 8:44:43 History and physical on the chart or being dictated. Assessment: Initial Case, HR=87 BPM, Rhythm=sr, BDCT=084/80 mmhg, Chest Pain=0, Edema=None, [place] r=Normal, Skin = Warm, Dry Right Pulses: Post Tib=2, Femoral=1, Radial=2 8:44:46 Left Pulses: [place]onay Ped=2, Femoral=1 Neurological: State=Alert, Ox3, TONG Respiration: Resp=18 B/min, SpO2=95 %, O2=0 lpm 8:44:51 Reference ECG taken 8:45:25 Bilateral groins prepped with 2% chlorhexidine, and draped after a 3 minute waiting time. 8:48:46 HR=90 bpm, NZLJ=582/78 mmhg, SpO2=93.0 %, Resp=18 B/min 8:53:39 HR=92 bpm, ELTS=288/85 mmhg, SpO2=94.0 %, Resp=16 B/min, Chen=2 8:55:20 Pressure channel 2 zeroed. 8:58:23 MD responded 8:59:11 HR=89 bpm, FWXD=674/72 mmhg, SpO2=93.0 %, Resp=17 B/min, Chen=2 8:59:48 MD arrived. Time Out. Correct patient, correct procedure, correct physician, labs, allergies, and equipment verified with electroplating laborer 9:00:10 team present. Fire risk assesment completed (see hard stop sheet for coding). Time Out Concu rred by MD and individual staff in procedure. 9:00:29 Presedation re-assessment performed by Long Chain Dyeing Machine Operator RN. 9:00:31 Case Start 9:00:33 Verbal Stimulation=2 Physical Stimulation=2 Airway=2 Respiration=2 TOTAL=8. (0=absent, 1=dia ited, 2=present) Patient arrived on 2 mg VERSED given by Roz Jean, RN in Right Antecubital via Peripheral IV. Ordered by Rocael, 9:00:49 Anthony. Patient arrived on 50 mcg FENTANYL given by Roz Jean, MOE in Right Antecubital via Periphe ral IV. Ordered by 9:: Anthony Cote. 9::25 5 mL 1% XYLOCAINE given in lab by Anthony Cote in Right Radial via Subcutaneous. Ordered b y Anthony Cote. 9:03:37 Access site was Right Radial Artery . 9:03:43 HR=93 bpm, JIMP=116/76 mmhg, SpO2=93.0 %, Resp=11 B/min, Chen=2 A SHEATH, FR6 RADIAL PRELUDE EASE 11CM FR 6 was advanced into the Radial (right) using the Percu taneous 49 technique. 9:04:21 200 mcg NTG (IC) given in lab by Anthony Cote via Intra-arterial. Ordered by Melissa Cote n. 5000 units HEPARIN given in lab by Roz Jean RN in Right Antecubital via Peripheral IV. O rdered by Rocael, 9:05: Anthony. A JR 5.0 INFINITI CATHETER FR 5 was advanced over a wire. OMNIPAQUE, 350 MG, 150ML 150ML was use d for 9:05:22 injections. Recorded Pressure: LV, HR=99, Condition=Condition 1 9:06:29 (Left Ventricle) LV 103/3/8 Recorded Pressure: LV, Ao, MC=019, Condition=Condition 1 9:06:36 (Left Ventricle) LV 106/1/5, (Aorta) Ao 97/64/78 9:07:04 The RCA was injected and visualized at various angles. OMNIPAQUE, 350 MG, 150ML 150ML used. Recorded Pressure: Ao, HR=95, Condition=Condition 1 9:07:15 (Aorta) Ao 100/60/77 9:08:42 HR=96 bpm, DHFQ=793/74 mmhg, SpO2=91.0 %, Resp=12 B/min, Chen=2 After removing the current catheter a JL 3.5 INFINITI CATHETER FR 5 was advanced over a WIRE, EX CHANGE 260CM 9:09:02 3MMJ 260CM. 9:09:40 The LCA was injected and visualized at various angles. OMNIPAQUE, 350 MG, 150ML 150ML used. 9:13:43 TK=126 bpm, UOTU=710/71 mmhg, SpO2=95 %, Resp=9 B/min, Chen=2 9:15:43 Case End (Physician broke scrub) 9:18:42 HR=95 bpm, HXHC=750/74 mmhg, Resp=11 B/min, Chen=2 Radial Compression Device Used. 10 mLs of air placed in BAND, RADIAL COMPRESSION TR SHORT 24 24C M. Affected 9:19:16 hand 94 % O2 saturation. Assessment: Final Case, HR=95 BPM, Rhythm=sr, CWOE=658/74 mmhg, Chest Pain=0, Edema=None, [place] r=Normal, Skin = Warm, Dry Right Pulses: Post Tib=2, Femoral=1, Radial=2 9:19:41 Left Pulses: Adonay Ped=2, Femoral=1 Neurological: State=Alert, Ox3, TONG Respiration: Resp=18 B/min, SpO2=95 %, O2=0 lpm 9:23:41 TYFQ=602/73 mmhg, Chen=2 9:24:47 No case complications noted. 9:24:49 Cine recording checked. 9:24:56 A Left Heart Cath was performed. 9:24:59 Patient moved to [facility] End Study - Contrast Media Used In Study Contrast Total Opened (mL) Total Used (mL) Total Wasted (mL) Omnipaque 45 45 0 End Study - Maximum Contrast Load Max Contrast Load (mL) 590.9 End Study - Radiation Exposure Fluoro Time Fluoro Dose (mGy) Cine Dose (uGym2) (minutes) 2.3 4919 1805 End Study - Patient Disposition Complications Transferred To No Long Chain Dyeing Machine Operator Holding
--- NOTE | 2018-09-06 10:42 | ECG ---
Date Performed: 09/05/2018 Time Performed: 22:52:11 PTAGE: 58 years EKG: Sinus rhythm WITH OCCASIONAL VENTRICULAR PREMATURE COMPLEXES NONSPECIFIC T-WAVE ABNORMALITY BORDERLINE ECG No sig nificant change PREVIOUS TRACING : 09/05/2018 21.41 DOCTOR: Patricio Victoria Interpretating Date/Time 09/06/2018 10:40:34
--- NOTE | 2018-09-06 10:42 | ECG ---
Date Performed: 09/05/2018 Time Performed: 21:41:06 PTAGE: 58 years EKG: Sinus rhythm NORMAL ECG PREVIOUS TRACING : 09/05/2018 15.36 DOCTOR: Patricio Victoria Interpretating Date/Time 09/06/2018 10:41:25
--- NOTE | 2018-09-06 10:44 | ECG ---
Date Performed: 09/05/2018 Time Performed: 15:36:50 PTAGE: 58 years EKG: Sinus rhythm NORMAL ECG PREVIOUS TRACING : 09/05/2018 11.12 DOCTOR: Patricio Victoria Interpretating Date/Time 09/06/2018 10:42:29
--- NOTE | 2018-09-06 10:45 | TR ---
Date Performed: 09/05/2018 Time Performed: 17:12:36 DOCTOR: Patricio Victoria DRUG LIST: CLINICAL HISTORY: REASON FOR TEST: Chest pain REASON FOR ENDING: OBSERVATION: CONCLUSION: Irineo protocol completed. Stopped sec to leg fatigue. Maximum ZH=290 Target HR Achie [place]=84.0% Maximum LW=036/84 Total Exercise Time=5:00. No reprod chest pain. No ectopy. No st t segmen t changes. Fair exercise tolerance. Recovery quick and unremarkable. COMMENTS:
[2018-09-06] MEDS ORDERED: ceFAZolin Inj 2,000 MG in Sodium Chlor 0.9% Inj 80 ML IV.SIG SCH (14:00)
[2018-09-06] MEDS ORDERED: Dextrose 50% in Water 50 ML Vial IV.PUSH PRN (14:00)
[2018-09-06] MEDS ORDERED: Chlorhexidine 4% Topical 120 APPLIC/120 ML Bottle TOPICAL SCH (14:00)
--- NOTE | 2018-09-06 14:39 | P.PNIM ---
Subjective Interval history: The patient went for cardiac catheterization today. He is anticipating open heart surgery on morning. He says he is currently asymptomatic. He did have severe chest pain last night that resolved with 3 nitro and morphine. His friend was at the bedside. Discussed with chest pain center physician preschool assistant director. Physical Exam Vital signs: Last Vital Signs Temp 98.0 F 09/06/18 07:33 Pulse 101 H 09/06/18 08:00 Resp 20 09/06/18 07:33 BP 141/77 H 09/06/18 07:33 Pulse Ox 97 09/06/18 09:39 Intake & Output 09/04/18 09/05/18 09/06/18 09/07/18 06:59 06:59 06:59 06:59 Weight 117.934 kg Narrative: GENERAL: No distress HEAD: NC, AT EYES: Sclera clear, conjunctiva without injection, pupils equal and round ENT: Mucous membranes pink and moist NECK: Supple, no masses, trachea midline CV: RRR, without murmur, rub, gallop RESP: Clear lungs throughout bilaterally, no crackles, wheezes, rhonchi ABD: Soft, NT, ND, no masses EXT: No dependent edema NEURO: Awake and alert. Normal tone x4 extremities, nontender, no obvious deformities, full range of motion Results Labs CBC & Chem 7: 09/05/18 12:00 09/05/18 12:00 Assessment and Plan (1) Unstable angina: Code(s): I20.0 - Unstable angina Status: Acute Plan CAD Has a history of multiple stents. Admitted to chest pain center initially. Stress test with ST depressions. Cardiology was consulted and s/p cath 09/06 which revealed multivessel disease. -CT surgery planning on CABG . -continue cardiac regimen including ASA, metoprolol, ACEi and statin. -telemetry. -continue therapeutic Lovenox and hold tomorrow evening. -check a lipid profile. Leukocytosis Likely a stress reaction. Afebrile. -follow CBC. Hyperglycemia Likely a stress reaction. -A1c pending. PPx: Lovenox Progress Note: Quality VTE Deep Vein Thrombosis/Pulmonary Embolism Present on Admission: No
[2018-09-06] MEDS ORDERED: Sodium Chlor 0.9% Inj 77.5 ML, Papaverine Inj 60 MG, Nitroglycerin Inj 100 MCG, dilTIAZ... IRRIGATION SCH ×3 (15:00)
[2018-09-06] MEDS ORDERED: Insulin Regular (For Infusion) 100 UNIT in Sodium Chlor 0.9% Inj 99 ML IV.CONT PRN (15:00)
[2018-09-06] MEDS ORDERED: Sodium Chloride 0.9% Irr Bot 500 ML, ceFAZolin Inj 500 MG IRRIGATION SCH ×2 (15:00)
--- NOTE | 2018-09-06 16:00 | P.PNCV ---
- Note Subjective/Hospital Course: pt seen and evaluated, full consult to follow sts data discussed with pt RISK SCORES Procedure: Isolated CAB CALCULATE Risk of Mortality: 0.717% Renal Failure: 0.936% Permanent Stroke: 0.870% Prolonged Ventilation: 5.151% DSW Infection: 0.208% Reoperation: 1.581% Morbidity or Mortality: 8.001% Short Length of Stay: 61.635% Long Length of Stay: 2.201% Objective: Vital Signs - 24 hr 09/05/18 16:00 09/05/18 20:00 09/05/18 21:44 Temperature 98.6 F 99.1 F Pulse Rate 90 92 H 79 Respiratory Rate 18 20 Blood Pressure 148/73 H 138/65 Pulse Oximetry 96 09/05/18 22:00 09/05/18 22:30 09/05/18 22:35 Temperature Pulse Rate 83 106 H 103 H Respiratory Rate 15 Blood Pressure 192/91 H 142/78 H Pulse Oximetry 97 09/06/18 03:22 09/06/18 07:31 09/06/18 07:33 Temperature 98.3 F 98.0 F Pulse Rate 87 101 H Respiratory Rate 20 20 Blood Pressure 138/73 141/77 H Pulse Oximetry 96 96 96 09/06/18 08:00 09/06/18 09:39 Temperature Pulse Rate 101 H Respiratory Rate Blood Pressure Pulse Oximetry 97 Labs: Laboratory Results - last 12 hr 09/06/18 09/06/18 11:00 11:10 Nasal Screen MRSA (PCR) Negative Staph aureus (PCR) Positive Blood Type O Positive Blood Type Recheck Required Antibody Screen Negative Result Diagrams: 09/05/18 12:00 09/05/18 12:00
[2018-09-06 16:05] LABS: Bilirubin,Urine Negative (Negative); Clarity,Urine Clear (Clear); Color,Urine Amber (Yellw/Straw); Glucose,Urine (UA) Negative (Negative); Leukocyte Esterase,Urine Negative (Negative); Mucus,Urine Few /lpf (Occasional); Nitrite,Urine Negative (Negative); Urobilinogen,Urine 4 or Greater mg/dL (Less than 2)
[2018-09-06 16:21] LABS: Chol/HDL Ratio 3.04 Ratio; HDL Cholesterol 50.3 mg/dL (40.0-60.0)
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
--- NOTE | 2018-09-06 16:54 | US ---
EXAM DATE: 09/06/2018 4:50 PM EST AGE/SEX: 58 years / Male INDICATIONS: Nausea and vomiting. CLINICAL DATA: This is the patient's initial encounter. Patient reports that signs and symptoms have been present for 1 day and indicates a pain score of 4/10. MEDICAL/SURGICAL HISTORY: . CAD. Hyperlipidemia. HTN. . Adenoidectomy. Appendectomy. Tonsi llectomy. Coronary artery stent. Cardiac cath. COMPARISON: No prior exams available for comparison. MEASUREMENTS: Liver:__ 20.4 cm. Common Bile Duct:__ Nonvisualized. FINDINGS: Liver: Increased echogenicity without focal lesion or ductal dilatation. Portal Vein: Hepatopedal flow seen in portal vein. Common Duct: No intraluminal mass or stone visualized. Gallbladder: Demonstrates no wall thickening or pericholecystic fluid. No stones visualized. Pancreas: Not well visualized. Right Kidney: Normal echogenicity and cortical thickness. No mass or hydronephrosis. Other: None. CONCLUSION: 1. Enlarged and fatty infiltrated liver. 2. Right upper quadrant ultrasound within normal limits. No abnormality seen of the gallbladder. Electronically signed by: King Shoemaker MD Board Certified Radiologist 09/06/2018 4:53 PM EST
--- NOTE | 2018-09-06 16:55 | US ---
EXAM DATE: 09/06/2018 4:52 PM EST AGE/SEX: 58 years / Male INDICATIONS: Preop cardiac surgery. CLINICAL DATA: This is the patient's initial encounter. Patient reports that signs and symptoms have been present for 1 day and indicates a pain score of 0/10. MEDICAL/SURGICAL HISTORY: Hypertension. Hyperlipidemia. CAD. . Adenoidectomy. Appendectomy. Tonsillectomy. Coronary artery stent. Cardiac cath. COMPARISON: No prior exams available for comparison. TECHNIQUE: Venous ultrasound of both lower extremities was performed from the inguinal ligament to t he proximal calf. Real-time, color Doppler and spectral tracing, compression and augmentation techni ques were used. FINDINGS: Right Leg: Normal compression of the deep venous system from the inguinal region to the proximal lillie f. No echogenic clot is seen. Normal response of the venous system to augmentation and respiration. Left Leg: Normal compression of the deep venous system from the inguinal region to the proximal calf . No echogenic clot is seen. Normal response of the venous system to augmentation and respiration. Other: None. CONCLUSION: Negative study. No venous thrombosis of either lower extremity. Electronically signed by: King Shoemaker MD Board Certified Radiologist 09/06/2018 4:54 PM EST
--- NOTE | 2018-09-06 16:56 | US ---
EXAM DATE: 09/06/2018 4:51 PM EST AGE/SEX: 58 years / Male INDICATIONS: Preop cardiac surgery. CLINICAL DATA: This is the patient's initial encounter. Patient reports that signs and symptoms have been present for 1 day and indicates a pain score of 0/10. MEDICAL/SURGICAL HISTORY: Hypertension. Hyperlipidemia. CAD. . Adenoidectomy. Appendectomy. Tonsillectomy. Coronary artery stent. Cardiac cath. COMPARISON: [facility] [place] VENOUS DOPPLER LEG BI, 09/06/2018. . MEASUREMENTS: RIGHT THIGH: Proximal:__7 mm Mid:__ 2 mm Distal:__3 mm LEFT THIGH: Proximal:__8 mm Mid:__4 mm Distal:__3 mm RIGHT CALF: Proximal:__3 mm Mid:__3 mm Distal:__2 mm LEFT CALF: Proximal:__3 mm Mid:__3 mm Distal:__2 mm FINDINGS: The venous system of the lower extremities are patent by color Doppler imaging. Measurements of the leg veins (in mm) are listed above. CONCLUSION: Bilateral greater saphenous vein mapping as described. Electronically signed by: King Shoemaker MD Board Certified Radiologist 09/06/2018 4:55 PM EST
--- NOTE | 2018-09-06 16:59 | US ---
EXAM DATE: 09/06/2018 4:55 PM EST AGE/SEX: 58 years / Male INDICATIONS: Preop cardiac surgery. CLINICAL DATA: This is the patient's initial encounter. Patient reports that signs and symptoms have been present for 1 day and indicates a pain score of 0/10. MEDICAL/SURGICAL HISTORY: Hypertension. Hyperlipidemia. CAD. . Adenoidectomy. Appendectomy. Tonsillectomy. Coronary artery stent. Cardiac cath. COMPARISON: No prior exams available for comparison. VELOCITY PARAMETERS: ICA/CCA Ratio: Right 0.8 , Left 0.7 ICA: Right 86 cm/sec, Left 88 cm/sec CCA: Right 111 cm/sec, Left 118 cm/sec ECA: Right 211 cm/sec, Left 135 cm/sec Vertebral: Right 60 cm/sec antegrade, Left 67 cm/sec antegrade FINDINGS: Right Carotid: Mild arteriosclerotic plaque is visualized of the bulb and proximal internal carotid artery.The waveforms are within normal limits. Left Carotid: Mild arteriosclerotic plaque is visualized of the bulb and proximal internal carotid a rtery. The waveforms are within normal limits. Other: None. CONCLUSION: 1. Right Internal Carotid Artery: Mild atherosclerosis at the bifurcation without hemodynamically si gnificant narrowing. 2. Left Internal Carotid Artery: Mild atherosclerosis at the bifurcation without hemodynamically sig nificant narrowing. Electronically signed by: King Shoemaker MD Board Certified Radiologist 09/06/2018 4:58 PM EST
[2018-09-06] MEDS: Enoxaparin Inj 120 MG/0.8 ML Syringe SQ SCH (21:07)
[2018-09-06] MEDS: Zolpidem Tartrate 5 MG Tablet PO PRN (21:21)
[2018-09-06] MEDS: Morphine Inj 4 MG/ML Vial IV.PUSH PRN (21:27)
[2018-09-06 21:47] LABS: Hemoglobin A1c 5.8 % (4.3-6.0)
[2018-09-06] MEDS ORDERED: Nitroglycerin Drip Premix 50 MG/250 ML BOTTLE IV.CONT PRN (23:00)
[2018-09-06] MEDS ORDERED: ALPRAZolam 0.5 MG Tablet PO ONE (23:00)
[2018-09-07] MEDS: Enoxaparin Inj 120 MG/0.8 ML Syringe SQ SCH ×2 (08:36→20:34)
--- NOTE | 2018-09-07 08:45 | P.PNIM ---
Subjective Interval history: Patient says he is feeling well. Denies any chest pain or shortness of breath. Denies nausea or vomiting. Last bowel movement on Wednesday. Says he will ask for laxatives if he does not have a bowel movement today. Physical Exam Vital signs: Vital Signs 09/06/18 09:39 09/06/18 16:50 09/06/18 17:00 Temperature 98.2 F Pulse Rate 100 H 89 Respiratory Rate 18 Blood Pressure 144/80 H Pulse Oximetry 97 96 09/06/18 18:00 09/06/18 19:00 09/06/18 20:00 Temperature 99.3 F Pulse Rate 106 H 90 91 H Respiratory Rate 22 Blood Pressure 140/72 Pulse Oximetry 96 09/06/18 21:00 09/06/18 21:30 09/06/18 22:00 Temperature Pulse Rate 78 85 82 Respiratory Rate 24 Blood Pressure 179/91 H Pulse Oximetry 100 09/06/18 23:00 09/07/18 00:00 09/07/18 01:00 Temperature 98.9 F Pulse Rate 75 91 H 74 Respiratory Rate 18 22 Blood Pressure 126/76 125/65 Pulse Oximetry 98 96 09/07/18 02:00 09/07/18 03:00 09/07/18 04:00 Temperature Pulse Rate 70 76 71 Respiratory Rate 18 Blood Pressure 140/76 Pulse Oximetry 100 09/07/18 05:00 09/07/18 05:09 09/07/18 06:00 Temperature Pulse Rate 73 73 Respiratory Rate Blood Pressure Pulse Oximetry 97 09/07/18 07:00 09/07/18 07:37 09/07/18 08:00 Temperature 97.9 F Pulse Rate 80 80 Respiratory Rate 18 Blood Pressure 124/81 Pulse Oximetry 96 95 Intake & Output 09/06/18 09/07/18 09/07/18 18:59 06:59 18:59 Intake Total 650 / 650 120 / 120 Output Total 550 / 550 Balance 650 / 650 -430 / -430 Weight 115.4 kg Intake: Oral 650 / 650 120 / 120 Output: Urine 550 / 550 Other: # Voids 2 1 Date of Last Bowel Movement 09/05/18 09/05/18 Narrative: GENERAL: Patient sitting up in bed. Appears comfortable. SKIN: Warm and dry. HEAD: Normocephalic. EYES: No scleral icterus. No injection or drainage. NECK: Supple, trachea midline. No JVD. CARDIOVASCULAR: Regular rate and rhythm without murmurs, gallops, or rubs. RESPIRATORY: Breath sounds equal bilaterally. No accessory muscle use. GASTROINTESTINAL: Abdomen soft, non-tender, nondistended. MUSCULOSKELETAL: No cyanosis, or edema. BACK: Nontender without obvious deformity. No CVA tenderness. Results - Labs CBC & Chem 7: 09/05/18 12:00 09/05/18 12:00 Laboratory Results - last 24 hr 09/06/18 09/06/18 09/06/18 11:00 11:10 13:15 Hemoglobin A1c Triglycerides Cholesterol LDL Cholesterol, Calc HDL Cholesterol Cholesterol/HDL Ratio Urine Color [place] Urine Clarity Clear Urine pH 6.0 Ur Specific [place] Greater than 1.060 H Urine Protein Negative Urine Glucose (UA) Negative Urine Ketones Negative Urine Occult Blood Negative Urine Nitrate Negative Urine Bilirubin Negative Urine Urobilinogen 4 or greater Ur Leukocyte Esterase Negative Urine RBC 3 Urine WBC 1 Urine Mucus Few H Micro UA Comment Culture not ind Ur Microscopic Review Not Reportable Urine Culture Comments Culture not ind Nasal Screen MRSA (PCR) Negative Staph aureus (PCR) Positive Blood Type O Positive Blood Type Recheck Required Antibody Screen Negative MTS Gel Crossmatch 09/06/18 09/06/18 09/07/18 15:42 15:42 00:01 Hemoglobin A1c 5.8 Triglycerides 151 H Cholesterol 153 LDL Cholesterol, Calc 73 HDL Cholesterol 50.3 Cholesterol/HDL Ratio 3.04 Urine Color Urine Clarity Urine pH Ur Specific [place] Urine Protein Urine Glucose (UA) Urine Ketones Urine Occult Blood Urine Nitrate Urine Bilirubin Urine Urobilinogen Ur Leukocyte Esterase Urine RBC Urine WBC Urine Mucus Micro UA Comment Ur Microscopic Review Urine Culture Comments Nasal Screen MRSA (PCR) Staph aureus (PCR) Blood Type Blood Type Recheck Antibody Screen MTS Gel Crossmatch See Detail - Imaging Impressions Gallbladder Ultrasound 09/06/18 00:00 CONCLUSION: 1. Enlarged and fatty infiltrated liver. 2. Right upper quadrant ultrasound within normal limits. No abnormality seen of the gallbladder. Carotid Doppler Study 09/06/18 14:00 CONCLUSION: 1. Right Internal Carotid Artery: Mild atherosclerosis at the bifurcation without hemodynamically significant narrowing. 2. Left Internal Carotid Artery: Mild atherosclerosis at the bifurcation without hemodynamically significant narrowing. Lower Extremity Ultrasound 09/06/18 14:00 CONCLUSION: Bilateral greater saphenous vein mapping as described. Venous Doppler Study 09/06/18 14:00 CONCLUSION: Negative study. No venous thrombosis of either lower extremity. Assessment and Plan - Assessment (1) Unstable angina Code(s): I20.0 - Unstable angina Status: Acute - Plan //CAD Has a history of multiple stents. Admitted to chest pain center initially. Stress test with ST depressions. -Cardiology was consulted and s/p cath 09/06 which revealed multivessel disease. -CT surgery planning on CABG . -continue cardiac regimen including ASA, metoprolol, ACEi and statin. -telemetry. -continue therapeutic Lovenox and hold tomorrow evening. -check a lipid profile. LDL of 73, HDL of 50. = Plan for CABG tomorrow. Therapeutic Lovenox as per cardiothoracic surgery. dw nursing //Leukocytosis Likely a stress reaction. Afebrile. -follow CBC. //Prediabetes //Hyperglycemia Likely a stress reaction. -A1c 5.8. Prediabetic. PPx: Lovenox Discussed Condition With: Patient, nurse Discharge Planning: Plan for CABG.
[2018-09-07 08:53] LABS: Baso % (Auto) 0.2 % (0.0-2.0); Eos # (Auto) 0.1 th/mm3 (0.0-0.4); Eos % (Auto) 1.8 % (0.0-4.0); Hematocrit 41.4 % (39.0-51.0); Hemoglobin 14.6 gm/dL (13.0-17.0); Lymph # (Auto) 1.8 th/mm3 (1.0-4.8); Mean Corpuscular HGB Conc 35.2 % (32.0-36.0); Mean Corpuscular Hemoglobin 30.6 pg (27.0-34.0); Mean Platelet Volume 6.7 fL (7.0-11.0); Mono # (Auto) 1.1 th/mm3 (0.0-0.9); Mono % (Auto) 16.6 % (0.0-8.0); Neut # (Auto) 3.5 th/mm3 (1.8-7.7); Neut % (Auto) 53.4 % (16.0-70.0); Platelet Count 188 th/mm3 (150-450); Red Blood Count 4.76 mil/mm3 (4.50-5.90); White Blood Count 6.5 th/mm3 (4.0-11.0)
[2018-09-07 09:17] LABS: Alanine Aminotransferase 71 U/L (12-78); Albumin 3.2 g/dL (3.4-5.0); Alkaline Phosphatase 106 U/L (45-117); Anion Gap 7 meq/L (5-15); Aspartate Aminotransferase 36 U/L (15-37); Blood Urea Nitrogen 12 mg/dL (7-18); Calcium 8.5 mg/dL (8.5-10.1); Carbon Dioxide 25.8 meq/L (21.0-32.0); Chloride 102 meq/L (98-107); Chol/HDL Ratio 3.85 Ratio; Cholesterol 156 mg/dL (120-200); Glomerular Filtration Rate Greater Than 89 mL/min (>89); Glucose,Random 94 mg/dL (74-106); HDL Cholesterol 40.5 mg/dL (40.0-60.0); LDL Cholesterol,Calculated 87 mg/dL (0-99); Sodium 135 meq/L (136-145); Total Protein 6.9 g/dL (6.4-8.2); Triglycerides 143 mg/dL (42-150)
--- NOTE | 2018-09-07 09:58 | ECHRPT ---
Indication: CARDIOMYOPATHY, PRE CABG CONCLUSIONS Normal left ventricular size. Mild concentric left ventricular hypertrophy. The left ventricular systolic function is low normal with an estimated ejection fraction in the rang e of 50- 55%. Trace tricuspid regurgitation with RVSP 27 mmHg. BP: / HR: Rhythm: Sinus MEASUREMENTS (Male / Female) Normal Values Technical Quality:Fair 2D ECHO LV Diastolic Diameter PLAX 3.9 cm 4.2 - 5.9 / 3.9 - 5.3 cm LV Systolic Diameter PLAX 3.0 cm IVS Diastolic Thickness 1.2 cm 0.6 - 1.0 / 0.6 - 0.9 cm LVPW Diastolic Thickness 1.2 cm 0.6 - 1.0 / 0.6 - 0.9 cm LV Relative Wall Thickness 0.6 RV Internal Dim ED PLAX 1.9 cm LVOT Diameter 1.9 cm Aortic Root Diameter 2.6 cm LA Systolic Diameter LX 2.4 cm 3.0 - 4.0 / 2.7 - 3.8 cm M-MODE AV Cusp Separation MM 1.8 cm DOPPLER AV Peak Velocity 149.0 cm/s AV Peak Gradient 8.9 mmHg AV Mean Gradient 5.0 mmHg AV Velocity Time Integral 27.4 cm LVOT Peak Velocity 54.1 cm/s LVOT Peak Gradient 1.2 mmHg LVOT Velocity Time Integral 11.9 cm AV Area Cont Eq vti 1.2 cm AV Area Cont Eq pk 1.0 cm Mitral E Point Velocity 71.1 cm/s Mitral A Point Velocity 65.6 cm/s Mitral E to A Ratio 1.1 LV E' Lateral Velocity 11.2 cm/s Mitral E to LV E' Lateral Ratio 6.3 LV E' Septal Velocity 6.9 cm/s Mitral E to LV E' Septal Ratio 10.3 TR Peak Velocity 205.0 cm/s TR Peak Gradient 16.8 mmHg Right Atrial Pressure 10.0 mmHg Pulmonary Artery Systolic Pressu 26.8 mmHg Right Ventricular Systolic Press 26.8 mmHg PV Peak Velocity 64.7 cm/s PV Peak Gradient 1.7 mmHg FINDINGS LEFT VENTRICLE Normal left ventricular size. Mild concentric left ventricular hypertrophy. The left ventricular systolic function is low normal with an estimated ejection fraction in the rang e of 50- 55%. RIGHT VENTRICLE Normal right ventricular size and systolic function. LEFT ATRIUM The left atrial size is normal. RIGHT ATRIUM The right atrial size is normal. ATRIAL SEPTUM Normal atrial septal thickness without atrial level shunting by limited color doppler interrogation. AORTA The aortic root and proximal ascending aorta are normal in size on limited imaging. MITRAL VALVE Structurally normal mitral valve. No mitral valve stenosis or regurgitation. AORTIC VALVE Trileaflet aortic valve. No aortic valve stenosis or regurgitation. TRICUSPID VALVE There is trace tricuspid valve regurgitation. The estimated pulmonary arterial pressure is 26.8 mmHg. PULMONARY VALVE No pulmonary valve regurgitation or stenosis. VESSELS The inferior vena cava is normal in size. PERICARDIUM No pericardial effusion. Anthony Cote MD, FACC (Electronically Signed) Final Date:07 September 2018 09:57
--- NOTE | 2018-09-07 12:43 | P.PNCV ---
- Note Subjective/Hospital Course: A 58-year-old male who has history of coronary artery disease with prior stent x2 in 2003, who presented to work this morning and developed some midsternal chest pain 10/10 and felt diaphoretic, also nauseated and then presented to the emergency department, has not been feeling well for the past couple of months, feeling tired and fatigued. He described the pain as a band around his chest. This was the worst pain that he ever experienced. Pain lasted about 10 minutes and resided on its own. His EKG showed no acute change. He had unremarkable troponins, but due to his past medical history of cardiac stenting , he went to the lab rep this morning by Dr. Cote, had a heart catheterization which showed an EF of 45%, left main disease of 40%, proximal LAD 70%, the diagonal 90%, the circ 70%, the OM 70%, RCA 70% the ramus was 95%. We were consulted to evaluate for coronary artery bypass grafting. PAST MEDICAL HISTORY: Includes coronary artery disease, hypertension, borderline diabetic, / pt had short episode of chest pain last night received dose of morphine / resolved pain, NTG ordered ( did not require starting) remains pain free at present carotid unremarkable US gallbladder : no gallstones, fatty liver stable for surgery in am add nitro paste Objective: Vital Signs - 24 hr 09/06/18 16:50 09/06/18 17:00 09/06/18 18:00 Temperature 98.2 F Pulse Rate 100 H 89 106 H Respiratory Rate 18 Blood Pressure 144/80 H Pulse Oximetry 96 09/06/18 19:00 09/06/18 20:00 09/06/18 21:00 Temperature 99.3 F Pulse Rate 90 91 H 78 Respiratory Rate 22 Blood Pressure 140/72 Pulse Oximetry 96 09/06/18 21:30 09/06/18 22:00 09/06/18 23:00 Temperature Pulse Rate 85 82 75 Respiratory Rate 24 18 Blood Pressure 179/91 H 126/76 Pulse Oximetry 100 98 09/07/18 00:00 09/07/18 01:00 09/07/18 02:00 Temperature 98.9 F Pulse Rate 91 H 74 70 Respiratory Rate 22 Blood Pressure 125/65 Pulse Oximetry 96 09/07/18 03:00 09/07/18 04:00 09/07/18 05:00 Temperature Pulse Rate 76 71 73 Respiratory Rate 18 Blood Pressure 140/76 Pulse Oximetry 100 09/07/18 05:09 09/07/18 06:00 09/07/18 07:00 Temperature Pulse Rate 73 80 Respiratory Rate Blood Pressure Pulse Oximetry 97 09/07/18 07:37 09/07/18 08:00 09/07/18 09:00 Temperature 97.9 F Pulse Rate 80 81 Respiratory Rate 18 Blood Pressure 124/81 Pulse Oximetry 96 95 09/07/18 10:00 09/07/18 11:00 09/07/18 11:37 Temperature 98.0 F Pulse Rate 88 88 92 H Respiratory Rate 18 Blood Pressure 138/83 Pulse Oximetry 96 GENERAL: SKIN: Warm and dry. HEAD: Normocephalic. EYES: No scleral icterus. No injection or drainage. NECK: Supple, trachea midline. No JVD or lymphadenopathy. CARDIOVASCULAR: Regular rate and rhythm without murmurs, gallops, or rubs. RESPIRATORY: Breath sounds equal bilaterally. No accessory muscle use. GASTROINTESTINAL: Abdomen soft, non-tender, nondistended. MUSCULOSKELETAL: No cyanosis, or edema. BACK: Nontender without obvious deformity. No CVA tenderness. Labs: Laboratory Results - last 12 hr 09/07/18 09/07/18 09/07/18 00:01 07:36 07:36 WBC 6.5 RBC 4.76 Hgb 14.6 Hct 41.4 MCV 87.0 MCH 30.6 MCHC 35.2 RDW 13.0 Plt Count 188 MPV 6.7 L Neut % (Auto) 53.4 Lymph % (Auto) 28.0 [place] % (Auto) 16.6 H Eos % (Auto) 1.8 Baso % (Auto) 0.2 Neut # (Auto) 3.5 Lymph # (Auto) 1.8 [place] # (Auto) 1.1 H Eos # (Auto) 0.1 Baso # (Auto) 0.0 WBC Differential . Differential Comment Auto diff final APTT Sodium 135 L Potassium 4.0 Chloride 102 Carbon Dioxide 25.8 Anion Gap 7 BUN 12 Creatinine 0.56 L Estimated GFR Greater than 89 Random Glucose 94 Calcium 8.5 Total Bilirubin 1.1 H Direct Bilirubin 0.3 H Indirect Bilirubin 0.8 AST 36 ALT 71 Alkaline Phosphatase 106 Total Protein 6.9 D Albumin 3.2 L D Triglycerides 143 Cholesterol 156 LDL Cholesterol, Calc 87 HDL Cholesterol 40.5 Cholesterol/HDL Ratio 3.85 MTS Gel Crossmatch See Detail 09/07/18 09:21 WBC RBC Hgb Hct MCV MCH MCHC RDW Plt Count MPV Neut % (Auto) Lymph % (Auto) [place] % (Auto) Eos % (Auto) Baso % (Auto) Neut # (Auto) Lymph # (Auto) [place] # (Auto) Eos # (Auto) Baso # (Auto) WBC Differential Differential Comment APTT 33.0 H D Sodium Potassium Chloride Carbon Dioxide Anion Gap BUN Creatinine Estimated GFR Random Glucose Calcium Total Bilirubin Direct Bilirubin Indirect Bilirubin AST ALT Alkaline Phosphatase Total Protein Albumin Triglycerides Cholesterol LDL Cholesterol, Calc HDL Cholesterol Cholesterol/HDL Ratio MTS Gel Crossmatch Result Diagrams: 09/07/18 07:36 09/07/18 07:36 - Plan (2) Coronary artery disease (3) Hypertension (4) Unstable angina Plan: for surgery in am (2) Coronary artery disease Qualifiers: Coronary Disease-Associated Artery/Lesion type: [place] artery [place] vs. transplanted heart: [place] heart Associated angina: without angina Qualified Code(s): I25.10 - Atherosclerotic heart disease of [place] coronary artery without angina pectoris (3) Hypertension Qualifiers: Hypertension type: unspecified Qualified Code(s): I10 - Essential (primary) hypertension
[2018-09-07 16:00] LABS: Hemoglobin A1c 5.7 % (4.3-6.0)
[2018-09-07] MEDS: ALPRAZolam 0.5 MG Tablet PO PRN (16:02)
[2018-09-07] MEDS: Metoprolol Tartrate 50 MG Tablet PO SCH (21:13)
--- NOTE | 2018-09-07 23:27 | ECG ---
Date Performed: 09/06/2018 Time Performed: 21:50:56 PTAGE: 58 years EKG: Sinus rhythm . Normal ECG PREVIOUS TRACING : 09/05/2018 22.52 Since the previous tracing, no significant change noted DOCTOR: Griselda Rawls Interpretating Date/Time 09/07/2018 23:25:40
[2018-09-07] MEDS ORDERED: Chlorhexidine Gluconate 2% 1 Pack (2 Cloths) TOPICAL ONE (23:39)
[2018-09-07] MEDS ORDERED: Sodium Chlor 0.9% Inj 500 ML IV.SIG SCH (23:45)
[2018-09-08] MEDS: ALPRAZolam 0.5 MG Tablet PO PRN (03:33)
[2018-09-08] MEDS: Metoprolol Tartrate 50 MG Tablet PO SCH ×3 (05:11→21:34)
[2018-09-08] MEDS ORDERED: Heparin - SQ 10,000 UNITS/ML Vial ONE ×2 (06:15→06:28)
[2018-09-08] MEDS ORDERED: ceFAZolin 1 GM Premix Inj 2 GM/100 ML PIGGYBACK IV.SIG ONE (06:15)
[2018-09-08] MEDS ORDERED: MethylPREDNISolone Sod Succinate Inj 125 MG/2 ML Vial ONE ×2 (06:28→08:13)
[2018-09-08] MEDS ORDERED: ceFAZolin 2 GM Premix Inj 2 GM/50 ML PIGGYBACK IV.SIG SCH (07:00)
[2018-09-08] MEDS ORDERED: fentaNYL Citrate Inj 250 MCG/5 ML Ampul ONE (07:07)
[2018-09-08] MEDS ORDERED: Midazolam Inj 5 MG/ML 1 ML Vial ONE (07:07)
[2018-09-08] MEDS ORDERED: Calcium Chloride Inj 1 GM/10 ML Syringe ONE (07:21)
[2018-09-08] MEDS ORDERED: Cardioplegic Irr Soln 2,000 ML IRRIGATION ONE (07:21)
[2018-09-08] MEDS ORDERED: Heparin 10,000 UNITS/10 ML Vial (for IV use) ONE ×2 (07:22→12:37)
[2018-09-08] MEDS ORDERED: Albumin Human 25% Inj 50 ML IV.SIG ONE (07:22)
--- NOTE | 2018-09-08 08:46 | P.PNIM ---
Subjective Interval history: Note opened before pt was seen as he left for OR)Follow-up CAD. Patient just extubated and still sedated currently on dobutamine and insulin drip. Discussed with CVICU nurse. Physical Exam Vital signs: Vital Signs 09/07/18 09:00 09/07/18 10:00 09/07/18 11:00 Temperature Pulse Rate 81 88 88 Respiratory Rate Blood Pressure Pulse Oximetry 09/07/18 11:37 09/07/18 12:00 09/07/18 13:00 Temperature 98.0 F Pulse Rate 92 H 91 H 86 Respiratory Rate 18 Blood Pressure 138/83 Pulse Oximetry 96 09/07/18 14:00 09/07/18 15:00 09/07/18 15:52 Temperature 98.0 F Pulse Rate 82 95 H 76 Respiratory Rate 18 Blood Pressure 137/84 Pulse Oximetry 96 09/07/18 16:00 09/07/18 16:59 09/07/18 17:00 Temperature Pulse Rate 79 84 Respiratory Rate Blood Pressure Pulse Oximetry 96 09/07/18 18:00 09/07/18 19:00 09/07/18 20:00 Temperature 97.7 F Pulse Rate 80 81 85 Respiratory Rate 16 Blood Pressure 130/81 Pulse Oximetry 97 09/07/18 21:00 09/07/18 22:00 09/07/18 23:00 Temperature Pulse Rate 70 73 69 Respiratory Rate Blood Pressure Pulse Oximetry 09/07/18 23:46 09/08/18 00:00 09/08/18 01:00 Temperature 98.4 F Pulse Rate 79 72 72 Respiratory Rate 16 Blood Pressure 124/71 Pulse Oximetry 97 09/08/18 02:00 09/08/18 03:00 09/08/18 04:00 Temperature Pulse Rate 79 75 98 H Respiratory Rate Blood Pressure Pulse Oximetry 09/08/18 05:00 09/08/18 05:51 Temperature Pulse Rate 78 79 Respiratory Rate Blood Pressure Pulse Oximetry Intake & Output 09/07/18 09/08/18 09/08/18 18:59 06:59 18:59 Intake Total 850 / 850 240 / 240 Output Total 240 / 240 450 / 450 Balance 610 / 610 -210 / -210 Weight 117 kg Intake: Oral 850 / 850 240 / 240 Output: Urine 240 / 240 450 / 450 Other: # Voids 3 Date of Last Bowel Movement 09/07/18 09/07/18 # Bowel Movements 1 Narrative: GENERAL: Well-developed well-nourished in no distress SKIN: Warm and dry. CARDIOVASCULAR: Regular rate and rhythm without murmurs, gallops, or rubs. Prevena dressing chest tube in place RESPIRATORY: Breath sounds equal bilaterally. No accessory muscle use. GASTROINTESTINAL: Abdomen soft, non-tender, nondistended. De Leon in place bilateral SCD MUSCULOSKELETAL: No cyanosis, or edema. Results Labs CBC & Chem 7: 09/07/18 07:36 09/07/18 07:36 Labs: Microbiology 09/06/18 13:15 Clean Catch Urine Urine Culture - Preliminary Immature growth - reincubate Imaging Imaging: ITS Impressions Chest X-Ray 09/05/18 11:47 CONCLUSION: Negative for acute process Gallbladder Ultrasound 09/06/18 00:00 CONCLUSION: 1. Enlarged and fatty infiltrated liver. 2. Right upper quadrant ultrasound within normal limits. No abnormality seen of the gallbladder. Carotid Doppler Study 09/06/18 14:00 CONCLUSION: 1. Right Internal Carotid Artery: Mild atherosclerosis at the bifurcation without hemodynamically significant narrowing. 2. Left Internal Carotid Artery: Mild atherosclerosis at the bifurcation without hemodynamically significant narrowing. Lower Extremity Ultrasound 09/06/18 14:00 CONCLUSION: Bilateral greater saphenous vein mapping as described. Venous Doppler Study 09/06/18 14:00 CONCLUSION: Negative study. No venous thrombosis of either lower extremity. Procedures Procedures: Cardiac catheterization CABG Assessment and Plan (1) Chest pain, rule out acute myocardial infarction: Code(s): R07.9 - Chest pain, unspecified Status: Acute (2) Coronary artery disease: Code(s): I25.10 - Atherosclerotic heart disease of [place] coronary artery without angina pectoris Status: Chronic (3) Hypertension: Code(s): I10 - Essential (primary) hypertension Status: Chronic (4) Unstable angina: Code(s): I20.0 - Unstable angina Status: Acute (5) Hyperlipidemia: Code(s): E78.5 - Hyperlipidemia, unspecified Status: Chronic (6) Hypertension: Code(s): I10 - Essential (primary) hypertension Status: Chronic Plan CAD status post CABG. Stable continue postoperative care per cardiothoracic surgery -continue cardiac regimen including ASA, metoprolol, ACEi and statin. -telemetry. -LDL of 73, HDL of 50. Leukocytosis Likely a stress reaction. Afebrile. -follow CBC. Prediabetes Hyperglycemia Likely a stress reaction. -A1c 5.8. Prediabetic. PPx: Lovenox when cleared by cardiothoracic surgery Progress Note: Quality VTE Deep Vein Thrombosis/Pulmonary Embolism Present on Admission: No _ (1) Coronary artery disease Qualifiers: Associated angina: without angina Coronary Disease-Associated Artery/Lesion type: [place] artery [place] vs. transplanted heart: [place] heart Qualified Code (s): I25.10 - Atherosclerotic heart disease of [place] coronary artery without angina pectoris (2) Hyperlipidemia Qualifiers: Hyperlipidemia type: (3) Hypertension Qualifiers: Hypertension type: unspecified Qualified Code(s): I10 - Essential (primary) hypertension (4) Hypertension Qualifiers: Hypertension type:
[2018-09-08] MEDS ORDERED: RESP: Albuterol Concentrated 2.5 MG/0.5 ML Neb ONE (09:46)
[2018-09-08] MEDS ORDERED: Clevidipine Inj 25 MG/50 ML VIAL IV.CONT PRN (12:34)
[2018-09-08] MEDS ORDERED: hydrALAZINE HCl Inj 20 MG/ML Vial IV.PUSH PRN (12:34)
[2018-09-08] MEDS ORDERED: Post-op Orders (for Pharmacy) OTHER STA (12:34)
[2018-09-08] MEDS ORDERED: Metoprolol Inj 5 MG/5 ML Vial IV.PUSH PRN (12:34)
[2018-09-08] MEDS ORDERED: Calcium Chloride Inj 1 GM/10 ML Syringe IV.PUSH PRN (12:34)
[2018-09-08] MEDS ORDERED: Insulin Regular (For Infusion) 100 UNIT in Sodium Chlor 0.9% Inj 99 ML IV.CONT PRN (12:34)
[2018-09-08] MEDS ORDERED: Dextrose 50% in Water 50 ML Vial IV.PUSH PRN (12:34)
[2018-09-08] MEDS ORDERED: RESP: Racemic Epinephrine 2.25% 0.5 ML Neb NEB ONE (12:34)
[2018-09-08] MEDS ORDERED: Potassium Chlor 20 mEq Premix 20 MEQ/100 ML PIGGYBACK IV.SIG PRN ×3 (12:34)
[2018-09-08] MEDS ORDERED: Magnesium Sulfate Inj 2 GM in Sodium Chlor 0.9% Inj 96 ML IV.SIG PRN ×4 (12:34)
--- NOTE | 2018-09-08 12:47 | P.OP ---
- Preoperative Diagnosis (1) Coronary artery disease (2) Unstable angina Postoperative Diagnosis: same Date of procedure: 09/08/18 Procedure: CABG x 5 SALINAS to LAD -good SVG to Ramus - fair SVG to D1 - good SVG to L PDA - good SVG to RCA - good EVH ASTER Anesthesia: GETA Surgeon: Tina Samano MD Barrel Scraper: Nick Cardenas Pathology: none sent Operation and Findings: The risks, benefits, complications, treatment options, and expected outcomes were discussed with the patient. The possibilities of reaction to medication, pulmonary aspiration, perforation of viscus, bleeding, recurrent infection, the need for additional procedures, failure to diagnose a condition, and creating a complication requiring transfusion or operation were discussed with the patient. The patient concurred with the proposed plan, giving informed consent. The site of surgery properly noted/marked. The patient was taken to Operating Room, identified as King Mooney and the procedure verified as CABG, EVH, ASTER. A Time Out was held and the above information confirmed. Standard monitoring lines and De Leon catheter were placed. General anesthesia was induced. The patient was prepped and draped in a sterile fashion. A median sternotomy was performed and electrocautery was used to obtain hemostasis. The left internal mammary artery was procured as a pedicle from the 7th rib to the 1st rib in the usual manner. Simultaneously left greater saphenous vein was procured from the left leg using a minimally invasive endoscopic technique. The vein was prepared for anastomosis and the leg wound was irrigated and closed in 2 layers. The pericardium was opened and a pericardial sling was created using interrupted 0 silk sutures. The patient was heparinized for cardiopulmonary bypass and the distal mammary pedicle was instrumented for anastomosis. The heart was instrumented for cardiopulmonary bypass in the usual manner. Antegrade blood cardioplegia was employed. The patient was placed on cardiopulmonary bypass. An aortic cross-clamp was applied and the heart was arrested using cold blood cardioplegia. Antegrade cardioplegia was administered after he each anastomosis. After adequate arrest, the distal right coronary circulation was investigated and the distal RCA was opened with a [place] blade and found to be a 1.5 millimeter good target. Saphenous vein was approximated to the RCA artery using a running 7 0 Prolene suture. The graft was measured for length and orientation and the proximal anastomosis was constructed to the ascending aorta using a running 5 0 Prolene suture after creating an aortotomy with a 5 millimeter punch. The left PDA was opened with a [place] blade and found to be a 1.5 millimeter good target. Saphenous vein was approximated to the left PDA artery using a running 7 0 Prolene suture. The graft was measured for length and orientation and the proximal anastomosis was constructed to the ascending aorta using a running 5 0 Prolene suture after creating an aortotomy with a 5 millimeter punch. The ramus intermedius was opened with a [place] blade and found to be a 1 millimeter fair target with diffuse disease. Saphenous vein was approximated to the RI artery using a running 7 0 Prolene suture. The graft was measured for length and orientation and the proximal anastomosis was constructed to the ascending aorta using a running 5 0 Prolene suture after creating an aortotomy with a 5 millimeter punch. The 1st diagonal artery was then opened with a [place] blade and found to be a 1.5 millimeter good target. Saphenous vein was approximated to the D1 artery using a running 7 0 Prolene suture. The graft was measured for length and orientation and was suspended from the pericardium. The distal LAD was opened with a [place] blade and found to be a 1.5 millimeter good target. The left internal mammary artery was approximated to the LAD using a running 7 0 Prolene suture. The pedicle was attached to the epicardium using interrupted 5 0 silk suture. The patient was systemically rewarmed and received a hotshot dose of warm blood cardioplegia. The aorta was vented and the proximal anastomosis to the D1 graft was accomplished using a running 5 0 Prolene suture after creating an aortotomy was a 5 millimeter punch. The cross-clamp was removed and all proximal and distal anastomoses were examined for hemostasis. The patient was weaned from cardiopulmonary bypass. Protamine was given. There was no adverse reaction. Decannulation was carried out without incident. Wound was checked for hemostasis which was obtained using electrocautery. A 36 [place] mediastinal and 32 [place] left pleural chest tubes were placed and secured to the skin with 0 silk suture. The sternum was closed with stainless steel wire. The fascia was closed with 1. PDS. The subcutaneous tissue was closed using a running 2-0 Vicryl suture. The skin was closed with 4-0 Monocryl. Sterile dressings were placed. At the end of the operation, all sponge, instruments, and needle counts were correct. The patient was transferred to the CVICU in stable condition. Findings: diffuse CAD, EF was ~35% prior to revascularization and improved to ~45% after XC: 79 min CPB: 93 min Drains: mediastinal x 1 pleural x 1 Complications: none
[2018-09-08] MEDS: Dexmedetomidine Inj 200 MCG in Sodium Chlor 0.9% Inj 48 ML IV.CONT PRN ×2 (13:00→23:55)
--- NOTE | 2018-09-08 13:31 | XR ---
EXAM DATE: 09/08/2018 1:24 PM EST AGE/SEX: 58 years / Male INDICATIONS: Post op CABG. CLINICAL DATA: This is the patient's initial encounter. Patient reports that signs and symptoms have been present for 1 day and indicates a pain score of Nonresponsive. MEDICAL/SURGICAL HISTORY: Non-responsive. Non-responsive. COMPARISON: [facility] – [place], CHEST 1V SINGLE AP, 09/05/2018. . FINDINGS: A single AP view of the chest demonstrates subsegmental atelectasis left upper lobe. Right lung clear . Status post CABG. Endotracheal tube 3.6 cm above the soraya. Left-sided chest tube without pneumoth orax. Right jugular central line with tip in the SVC. The cardiomediastinal contours are unremarkable . Osseous structures are intact. Old right-sided rib fractures. CONCLUSION: 1. Status post median sternotomy. 2. Left-sided chest tube without pneumothorax. 3. Left upper lobe subsegmental atelectasis. Electronically signed by: Arsenio Hastings MD Board Certified Radiologist 09/08/2018 1:29 PM EST
--- NOTE | 2018-09-08 13:32 | P.PNCV ---
- Note Subjective/Hospital Course: A 58-year-old male who has history of coronary artery disease with prior stent x2 in 2003, who presented to work this morning and developed some midsternal chest pain 06/08 and felt diaphoretic, also nauseated and then presented to the emergency department, has not been feeling well for the past couple of months, feeling tired and fatigued. He described the pain as a band around his chest. This was the worst pain that he ever experienced. Pain lasted about 10 minutes and resided on its own. His EKG showed no acute change. He had unremarkable troponins, but due to his past medical history of cardiac stenting , he went to the cleaner laboratory equipment this morning by Dr. Cote, had a heart catheterization which showed an EF of 45%, left main disease of 40%, proximal LAD 70%, the diagonal 90%, the circ 70%, the OM 70%, RCA 70% the ramus was 95%. We were consulted to evaluate for coronary artery bypass grafting. PAST MEDICAL HISTORY: Includes coronary artery disease, hypertension, borderline diabetic, 09/07 pt had short episode of chest pain last night received dose of morphine / resolved pain, NTG ordered ( did not require starting) remains pain free at present carotid unremarkable US gallbladder : no gallstones, fatty liver stable for surgery in am add nitro paste 09/08 same Date of procedure: 09/08/18 Procedure: CABG x 5 SALINAS to LAD -good SVG to Ramus - fair SVG to D1 - good SVG to L PDA - good SVG to RCA - good EVH post EF 45% Objective: Vital Signs - 24 hr 09/07/18 14:00 09/07/18 15:00 09/07/18 15:52 Temperature 98.0 F Pulse Rate 82 95 H 76 Respiratory Rate 18 Blood Pressure 137/84 Pulse Oximetry 96 09/07/18 16:00 09/07/18 16:59 09/07/18 17:00 Temperature Pulse Rate 79 84 Respiratory Rate Blood Pressure Pulse Oximetry 96 09/07/18 18:00 09/07/18 19:00 09/07/18 20:00 Temperature 97.7 F Pulse Rate 80 81 85 Respiratory Rate 16 Blood Pressure 130/81 Pulse Oximetry 97 09/07/18 21:00 09/07/18 22:00 09/07/18 23:00 Temperature Pulse Rate 70 73 69 Respiratory Rate Blood Pressure Pulse Oximetry 09/07/18 23:46 09/08/18 00:00 09/08/18 01:00 Temperature 98.4 F Pulse Rate 79 72 72 Respiratory Rate 16 Blood Pressure 124/71 Pulse Oximetry 97 09/08/18 02:00 09/08/18 03:00 09/08/18 04:00 Temperature Pulse Rate 79 75 98 H Respiratory Rate Blood Pressure Pulse Oximetry 09/08/18 05:00 09/08/18 05:51 09/08/18 13:00 Temperature 97.7 F Pulse Rate 78 79 84 Respiratory Rate 12 Blood Pressure 122/65 Pulse Oximetry 95 09/08/18 13:18 09/08/18 13:20 09/08/18 13:23 Temperature Pulse Rate 81 82 Respiratory Rate 12 12 Blood Pressure Pulse Oximetry 98 Labs: Laboratory Results - last 12 hr 09/07/18 00:01 MTS Gel Crossmatch See Detail Result Diagrams: 09/07/18 07:36 09/07/18 07:36
[2018-09-08] MEDS: Calcium Chloride Inj 1 GM in Sodium Chlor 0.9% Inj 100 ML IV.SIG PRN ×2 (13:35→20:11)
--- NOTE | 2018-09-08 13:37 | P.DCO ---
- Diagnosis (1) Chest pain Status: Acute (2) Coronary artery disease Status: Chronic (3) Hypertension Status: Chronic (4) Hyperlipidemia Status: Chronic (5) Hypertension Status: Chronic (6) S/P coronary artery bypass graft x 5 Status: Acute - Home Health Nursing Order: Medical education, Signs/symptoms of disease process, Wound care and dressing changes, Nursing assessment with vital signs Instructions: PREVENA Single Use Negative Wound Therapy System Caregiver Instruction Sheet 1. A Prevena dressing system was applied to the chest incision during surgery , to promote wound healing. It works via a suction device (negative pressure wound therapy) to remove low to moderate levels of exudate (drainage) and infectious materials. We recommend that the device stay in place for up to seven days, from day of surgery. 2. Day of Surgery___09/08/18 Day of Removal ___09/15/18 3. The dressing should only be removed by a health resident care associate. Please arrange removal of device to coincide with Home Health visit and or with Nursing staff at Rehab 4. If skin reddening or irritation of skin occurs, or excessive drainage, please notify the Cardiovascular Surgeons office at [phone]. 5. Light showering is permissible; however the pump should be disconnected and placed in safe location, where it will not get wet. The dressing should not be exposed to direct spray or submerged in water. No bath tub / shower only. Ensure the end of the tubing attached to the dressing is facing down so that water does not enter the top of the tube. 6. To remove Prevena dressing: press purple button to turn off device / remove the suction. Then disconnect the tubing from the pump. The fixation strips should be stretched away from the skin and the dressing lifted at one corner and peeled back until it has been fully removed. 7. After removal, it is ok to shower daily using liquid dial soap and clean wash cloth, rinse and pat dry, and leave incision open to air dry. For any concerns regarding Prevena dressing, and or wounds, please contact Erma Marcum, patient navigator at [phone] or notify the Cardiovascular Surgeons office at [phone]. Incentive spirometry Q1 hr x 10, while awake, also use acapella device hourly whole awake Sternal Breast Bone Precautions: NO pushing or pulling, ( pt must use sternal pillow to support chest with all activities and with coughing ( takes up to 3 months breast bone to heal ) Daily incision care: ok to shower daily, no tub bath. Wash all incisions with liquid dial soap, clean wash cloth to each site, rinse and pat dry. Observe for any signs of infection, such as drainage which is dark yellow, gallegos, green or foul smelling. Immediately report to the surgeon any drainage from the chest incision, or legs, and for any abnormal drainage from the chest tube sites. Notify surgeon if any temp >101.5 degrees F. When specialty dressing removed/ or if you do not have one, continue to shower daily as above, then rinse and pat incision dry and paint with betadine daily x 5 days. Allow steri strips to fall off if you have any. Avoid lotions, creams, salves, oils, etc. for the first month Please see attached forms for additional instructions regarding post Open Heart specialty wound vacuum dressings. MYRNA or Prevena , Dressing to be removed by Nursing staff on __09/15/[address] Samano patients , please obtain CBC, BMP, PA & Lat CXR in 2 weeks, results to Dr. Samano ( prescription will be given) ( ) (Tele: [phone]) , F/U appointment: as per AL instructions: PCP in 2 weeks, CV surgeon 2 weeks, Director Of Event Management 3-4 weeks For any questions regarding incisions/ dressing / meds / post op care or above Symptoms, Wednesday 8am-5pm Heart & Vascular Surgery Office ( Dr. Cardenas & Dr. Samano), After Hours / Nights (5pm -8am) Weekends and Holidays Please call [facility] Cardiac Intermediate Care Unit (CIC) Charge Nurse Heart and Vascular Surgery patients *Special attention to sternal dressing Mandatory frequency Assess and evaluation, 4 days in a row The next week 3X week 2 times a week for 4 weeks 1 time a week for 5 weeks Schedule Heart and Vascular patients for full 60 day certification period Initial visit Review Open Heart Surgery Discharge Instructions (Sternal precautions, Activity, Elastic hose, Incision care, Driving, Incentive spirometry, Smoking, [place], Work and other) Need Betadine to paint incision Medication reconciliation Importance of follow up care/ check on appointments Make calendar record temperature daily When to call [facility] at Home nurse, review instructions, phone list Incentive Spirometry, demonstration Visit 1- Begin discharge instruction for patient family and/ or caregiver using teach back method- Signs and symptoms of infection Disease characteristics Medicines and side effects Foods and nutrition/ appetite Infection control/ hand washing/ hygiene Visit 2- Continue teaching Discharge instructions- include additional information on smoking cessation , sternal dressing (sternal vac) Visit 3- Continue teaching- Cough and deep breathing, incision monitoring. Choose my plate Visit 4- Continue teaching- Discuss limitations Discuss how they are feeling Discuss progress toward goals Remaining visits- continue teaching and monitoring For any questions please call : Wednesday 8am-5pm Heart & Vascular Surgery Office ( Dr. Cardenas & Dr. Samano), After Hours / Nights (5pm -8am) Weekends and Holidays Please call [facility] Cardiac Intermediate Care Unit (CIC) Charge Nurse - Case Management Consult Case Management Consult-Home Health: Yes - Certification I have seen patient King Mooney on 09/08/18. My clinical findings support the need for the requested home health care services because: Deconditioned with increased weakness I certify that my clinical findings support that this patient is homebound because: Post-op weakness (1) Chest pain Qualifiers: Chest pain type: unspecified Qualified Code(s): R07.9 - Chest pain, unspecified (2) Coronary artery disease Qualifiers: Coronary Disease-Associated Artery/Lesion type: [place] artery [place] vs. transplanted heart: [place] heart Associated angina: without angina Qualified Code(s): I25.10 - Atherosclerotic heart disease of [place] coronary artery without angina pectoris (3) Hypertension Qualifiers: Hypertension type: unspecified Qualified Code(s): I10 - Essential (primary) hypertension
[2018-09-08] MEDS ORDERED: DOBUTamine 250 MG/250 ML Premx 250 MG/250 ML BAG IV.CONT SCH (14:00)
[2018-09-08] MEDS: fentaNYL Citrate Inj 100 MCG/2 ML Ampul IV.PUSH PRN ×8 (14:16→23:15)
[2018-09-08] MEDS: Albumin Human 5% Inj 250 ML IV.SIG PRN ×2 (14:25→15:03)
[2018-09-08 15:42] LABS: Baso % (Auto) 0.1 % (0.0-2.0); Eos % (Auto) 0.1 % (0.0-4.0); Hematocrit 33.1 % (39.0-51.0); Hemoglobin 11.7 gm/dL (13.0-17.0); Lymph # (Auto) 0.7 th/mm3 (1.0-4.8); Lymph % (Auto) 6.6 % (9.0-44.0); Mean Corpuscular HGB Conc 35.3 % (32.0-36.0); Mean Corpuscular Hemoglobin 30.2 pg (27.0-34.0); Mean Corpuscular Volume 85.5 fL (80.0-100.0); Mean Platelet Volume 6.5 fL (7.0-11.0); Mono # (Auto) 0.7 th/mm3 (0.0-0.9); Mono % (Auto) 7.1 % (0.0-8.0); Neut # (Auto) 8.8 th/mm3 (1.8-7.7); Neut % (Auto) 86.1 % (16.0-70.0); Platelet Count 159 th/mm3 (150-450); Red Blood Count 3.86 mil/mm3 (4.50-5.90); Red Cell Distribution Width 12.4 % (11.6-17.2); White Blood Count 10.3 th/mm3 (4.0-11.0)
[2018-09-08 16:07] LABS: Albumin 2.9 g/dL (3.4-5.0); Anion Gap 4 meq/L (5-15); Aspartate Aminotransferase 22 U/L (15-37); Blood Urea Nitrogen 14 mg/dL (7-18); Calcium 8.3 mg/dL (8.5-10.1); Carbon Dioxide 27.3 meq/L (21.0-32.0); Chloride 109 meq/L (98-107); Glomerular Filtration Rate Greater Than 89 mL/min (>89); Glucose,Random 112 mg/dL (74-106); Magnesium 2.3 mg/dL (1.5-2.5); Potassium 4.3 meq/L (3.5-5.1); Sodium 140 meq/L (136-145)
[2018-09-08 16:08] LABS: Alanine Aminotransferase 34 U/L (12-78); Phosphorus 4.2 mg/dL (2.5-4.9)
[2018-09-08] MEDS: ceFAZolin 2 GM Premix Inj 2 GM/50 ML PIGGYBACK IV.SIG SCH (16:09)
[2018-09-08 16:10] LABS: Alkaline Phosphatase 58 U/L (45-117); Total Protein 5.1 g/dL (6.4-8.2)
[2018-09-08] MEDS: Amiodarone 200 MG Tablet PO SCH ×2 (16:11→21:34)
[2018-09-09] MEDS: ceFAZolin 2 GM Premix Inj 2 GM/50 ML PIGGYBACK IV.SIG SCH ×3 (02:00→16:10)
[2018-09-09] MEDS: fentaNYL Citrate Inj 100 MCG/2 ML Ampul IV.PUSH PRN ×3 (04:41→08:00)
[2018-09-09 04:47] LABS: Hematocrit 31.3 % (39.0-51.0); Hemoglobin 11.1 gm/dL (13.0-17.0); Mean Corpuscular HGB Conc 35.6 % (32.0-36.0); Mean Corpuscular Hemoglobin 30.7 pg (27.0-34.0); Mean Corpuscular Volume 86.3 fL (80.0-100.0); Mean Platelet Volume 6.6 fL (7.0-11.0); Platelet Count 169 th/mm3 (150-450); Red Blood Count 3.62 mil/mm3 (4.50-5.90); Red Cell Distribution Width 12.5 % (11.6-17.2); White Blood Count 9.3 th/mm3 (4.0-11.0)
[2018-09-09 05:12] LABS: Anion Gap 6 meq/L (5-15); Blood Urea Nitrogen 12 mg/dL (7-18); Carbon Dioxide 28.5 meq/L (21.0-32.0); Chloride 105 meq/L (98-107); Glomerular Filtration Rate Greater Than 89 mL/min (>89); Glucose,Random 108 mg/dL (74-106); Magnesium 2.2 mg/dL (1.5-2.5); Potassium 3.9 meq/L (3.5-5.1); Sodium 139 meq/L (136-145)
[2018-09-09] MEDS: Amiodarone 200 MG Tablet PO SCH ×3 (06:03→20:59)
--- NOTE | 2018-09-09 06:05 | XR ---
EXAM DATE: 09/09/2018 5:57 AM EST AGE/SEX: 58 years / Male INDICATIONS: Post CABG. CLINICAL DATA: This is the patient's subsequent encounter. Patient reports that signs and symptoms h ave been present for 4 - 6 days and indicates a pain score of Nonresponsive. MEDICAL/SURGICAL HISTORY: . Hypertension. Hyperlipidemia. CAD. . . Adenoidectomy. Appendectom y. Tonsillectomy. Coronary artery stent. Cardiac cath. COMPARISON: [facility] – [place], CHEST 1V SINGLE AP, 09/08/2018. . FINDINGS: Portable AP view of the chest demonstrates a normal-sized cardiac silhouette post median sternotomy. Lungs are underinflated and the left chest tube remains present. No pneumothorax is visualized. There is atelectasis at both lung bases. No pleural effusion is seen. The endotracheal tube and nasogastri c tube have been removed and right IJ line remains. CONCLUSION: 1. Left chest tube remains present and no pneumothorax is visualized. 2. Marked underinflation with atelectasis at the lung bases. Electronically signed by: King Levin MD Board Certified Radiologist 09/09/2018 6:03 AM EST
[2018-09-09] MEDS: Metoprolol Tartrate 50 MG Tablet PO SCH ×2 (09:15→21:00)
[2018-09-09] MEDS ORDERED: ALPRAZolam 0.25 MG Tablet PO ONE (09:45)
[2018-09-09] MEDS ORDERED: ALPRAZolam 0.25 MG Tablet PO PRN (10:01)
[2018-09-09] MEDS ORDERED: Bisacodyl 10 MG Supp RECTAL PRN (10:03)
[2018-09-09] MEDS ORDERED: Dextrose 50% in Water 50 ML Vial IV.PUSH PRN (10:03)
--- NOTE | 2018-09-09 10:37 | P.DIET ---
Nutritional Evaluation Screening comments: MDC for Diet Education s/p CABG x 5 on (09/08) received. Patient Navigator to provide education. Consult RD if complexities with diet education arise.
[2018-09-09] MEDS: Lisinopril 10 MG Tablet PO SCH (11:09)
--- NOTE | 2018-09-09 11:41 | P.PNCV ---
- Note Subjective/Hospital Course: A 58-year-old male who has history of coronary artery disease with prior stent x2 in 2003, who presented to work this morning and developed some midsternal chest pain 06/08 and felt diaphoretic, also nauseated and then presented to the emergency department, has not been feeling well for the past couple of months, feeling tired and fatigued. He described the pain as a band around his chest. This was the worst pain that he ever experienced. Pain lasted about 10 minutes and resided on its own. His EKG showed no acute change. He had unremarkable troponins, but due to his past medical history of cardiac stenting , he went to the microbiology lab analyst this morning by Dr. Cote, had a heart catheterization which showed an EF of 45%, left main disease of 40%, proximal LAD 70%, the diagonal 90%, the circ 70%, the OM 70%, RCA 70% the ramus was 95%. We were consulted to evaluate for coronary artery bypass grafting. PAST MEDICAL HISTORY: Includes coronary artery disease, hypertension, borderline diabetic, 09/07 pt had short episode of chest pain last night received dose of morphine / resolved pain, NTG ordered ( did not require starting) remains pain free at present carotid unremarkable US gallbladder : no gallstones, fatty liver stable for surgery in am add nitro paste 09/08 same Date of procedure: 09/08/18 Procedure: CABG x 5 SALINAS to LAD -good SVG to Ramus - fair SVG to D1 - good SVG to L PDA - good SVG to RCA - good EVH post EF 45% 3500cc crystalloid, 750cc cell saver extubated after surgery 09/09 pt up in chair, some anxiety , painful add prn xanax , increase dose of pain med and add toradol resume BB , sahwn , scheduled diuresis leave chest tube in Objective: Vital Signs - 24 hr 09/08/18 13:00 09/08/18 13:18 09/08/18 13:20 Temperature 97.7 F Pulse Rate 84 81 Respiratory Rate 12 12 12 Blood Pressure 122/65 Pulse Oximetry 95 98 09/08/18 13:23 09/08/18 13:39 09/08/18 14:00 Temperature Pulse Rate 82 Respiratory Rate Blood Pressure Pulse Oximetry 97 98 09/08/18 14:08 09/08/18 14:13 09/08/18 15:00 Temperature 97 F L Pulse Rate 65 81 Respiratory Rate 17 14 Blood Pressure 100/60 Pulse Oximetry 95 95 09/08/18 16:05 09/08/18 16:46 09/08/18 19:00 Temperature Pulse Rate 77 Respiratory Rate 16 15 16 Blood Pressure Pulse Oximetry 09/08/18 19:30 09/08/18 20:12 09/08/18 20:44 Temperature 98.9 F Pulse Rate 76 87 Respiratory Rate 16 18 Blood Pressure 119/67 Pulse Oximetry 99 99 96 09/08/18 23:00 09/09/18 02:15 09/09/18 03:00 Temperature 98.0 F 98.8 F Pulse Rate 86 77 Respiratory Rate 18 18 18 Blood Pressure 146/78 H 117/50 L Pulse Oximetry 97 99 09/09/18 03:15 09/09/18 07:00 09/09/18 08:00 Temperature 97.7 F Pulse Rate 79 85 Respiratory Rate 16 18 Blood Pressure 121/63 Pulse Oximetry 95 95 09/09/18 09:12 Temperature Pulse Rate 84 Respiratory Rate 18 Blood Pressure Pulse Oximetry 95 GENERAL: A&O x 3 SKIN: Warm and dry. prevena dressing to chest, shawn wrap left leg HEAD: Normocephalic. EYES: No scleral icterus. No injection or drainage. NECK: Supple, trachea midline. No JVD or lymphadenopathy. CARDIOVASCULAR: Regular rate and rhythm without murmurs, gallops, or rubs. RESPIRATORY: Breath sounds equal bilaterally. No accessory muscle use. diminished in bases, few crackles / chest tube to cordero seal / no air leak , drained 230cc/ 12 hrs GASTROINTESTINAL: Abdomen soft, non-tender, nondistended. MUSCULOSKELETAL: No cyanosis, or edema. BACK: Nontender without obvious deformity. No CVA tenderness. Labs: Laboratory Results - last 12 hr 09/07/18 09/09/18 09/09/18 00:01 01:22 03:55 WBC 9.3 RBC 3.62 L Hgb 11.1 L Hct 31.3 L MCV 86.3 MCH 30.7 MCHC 35.6 RDW 12.5 Plt Count 169 MPV 6.6 L Sodium Potassium Chloride Carbon Dioxide Anion Gap BUN Creatinine Estimated GFR POC Glucose 131 H Random Glucose Calcium Magnesium MTS Gel Crossmatch See Detail 09/09/18 09/09/18 09/09/18 03:55 03:55 06:10 WBC RBC Hgb Hct MCV MCH MCHC RDW Plt Count MPV Sodium 139 Potassium 3.9 Chloride 105 Carbon Dioxide 28.5 Anion Gap 6 BUN 12 Creatinine 0.58 L Estimated GFR Greater than 89 POC Glucose 99 119 H Random Glucose 108 H Calcium 8.0 L Magnesium 2.2 MTS Gel Crossmatch 09/09/18 09/09/18 09/09/18 07:47 09:04 10:50 WBC RBC Hgb Hct MCV MCH MCHC RDW Plt Count MPV Sodium Potassium Chloride Carbon Dioxide Anion Gap BUN Creatinine Estimated GFR POC Glucose 121 H 116 H 142 H Random Glucose Calcium Magnesium MTS Gel Crossmatch Result Diagrams: 09/09/18 03:55 09/09/18 03:55 Telemetry: NSR - Plan (1) Chest pain (2) Coronary artery disease (3) Hypertension (6) S/P coronary artery bypass graft x 5 Plan: Neuro: add low dose prn xanax pain control CV: ASA, statin, BB , amiodarone scheduled diuresis Resp: pulm toileting nebs, ezpap acapella GI: motility meds Endo: diabetic diet insulin sliding scale prophy: protonix, nebs CM to eval for HHC (1) Chest pain Qualifiers: Chest pain type: unspecified Qualified Code(s): R07.9 - Chest pain, unspecified (2) Coronary artery disease Qualifiers: Coronary Disease-Associated Artery/Lesion type: [place] artery [place] vs. transplanted heart: [place] heart Associated angina: without angina Qualified Code(s): I25.10 - Atherosclerotic heart disease of [place] coronary artery without angina pectoris (3) Hypertension Qualifiers: Hypertension type: unspecified Qualified Code(s): I10 - Essential (primary) hypertension
[2018-09-09] MEDS: Ketorolac Inj 30 MG/ML (IVP) Vial IV.PUSH PRN ×2 (11:52→18:06)
[2018-09-09] MEDS: Insulin NovoLOG Aspart Correctional Sugar Inj SQ SCH ×2 (13:50→18:15)
--- NOTE | 2018-09-09 14:24 | ECG ---
Date Performed: 09/09/2018 Time Performed: 05:21:18 PTAGE: 58 years EKG: CONSIDER ACUTE ST ELEVATION [place] Sinus rhythm . Anterolateral ST elevation, CONSIDER ACUTE INFARCT. The ST elevation is slightly diffuse and could alternatively represent pericarditis. Abnormal ECG PREVIOUS TRACING : 09/06/2018 21.50 DOCTOR: Brennan Romero Interpretating Date/Time 09/09/2018 14:23:33
--- NOTE | 2018-09-09 15:16 | P.PNIM ---
Subjective Interval history: Follow-up CABG. States he is sore ambulated with physical therapy out of bed to chair. Currently on room air Physical Exam Vital signs: Vital Signs 09/08/18 16:05 09/08/18 16:46 09/08/18 19:00 Temperature Pulse Rate 77 Respiratory Rate 16 15 16 Blood Pressure Pulse Oximetry 09/08/18 19:30 09/08/18 20:12 09/08/18 20:44 Temperature 98.9 F Pulse Rate 76 87 Respiratory Rate 16 18 Blood Pressure 119/67 Pulse Oximetry 99 99 96 09/08/18 23:00 09/09/18 02:15 09/09/18 03:00 Temperature 98.0 F 98.8 F Pulse Rate 86 77 Respiratory Rate 18 18 18 Blood Pressure 146/78 H 117/50 L Pulse Oximetry 97 99 09/09/18 03:15 09/09/18 07:00 09/09/18 08:00 Temperature 97.7 F Pulse Rate 79 85 Respiratory Rate 16 18 Blood Pressure 121/63 Pulse Oximetry 95 95 09/09/18 09:12 09/09/18 11:00 09/09/18 13:23 Temperature 98.3 F Pulse Rate 84 87 89 Respiratory Rate 18 16 18 Blood Pressure 131/75 Pulse Oximetry 95 94 L Intake & Output 09/08/18 09/09/18 09/09/18 18:59 06:59 18:59 Intake Total 5712 / 5712 1070 / 1070 50 / 50 Output Total 3203 / 3203 1979 / 1979 Balance 2509 / 2509 -910 / -910 50 / 50 Weight 130 kg Intake: IV 1462 / 1462 350 / 350 50 / 50 Precedex Inj 200 MCG In NS Inj 27 / 27 48 ML @ 0.2 MCG/KG/HR 5.85 mls/ hr IV.CONT TITRATE PRN Rx#: [id number] NovoLIN R (IV Infusion) 100 35 / 35 UNIT In NS Inj 99 ML @ 3 UNITS/ HR 3 mls/hr IV.CONT TITRATE PRN Rx#:[id number] Ofirmev Inj 1,000 mg In 100 ml 100 / 100 200 / 200 @ 400 mls/hr IV.SIG Q6H BINH Rx# :[id number] Buminate 5% Inj 250 ML @ 250 500 / 500 mls/hr IV.SIG UNSCH PRN Rx#: [id number] Calcium Chloride Inj 1 GM In NS 100 / 100 100 / 100 Inj 100 ML @ 100 mls/hr IV.SIG PRN PRN Rx#:[id number] LR 1000 mL Inj 500 ML @ 500 mls 500 / 500 /hr IV.SIG .Q1H PRN Rx#: [id number] Ancef 1 GM Premix Inj 2 gm In 100 / 100 100 ml @ 0 mls/hr IV.SIG .STK- MED ONE Rx#:[id number] Ancef 2 GM Premix Inj 2 gm In 100 / 100 50 / 50 50 / 50 50 ml @ 200 mls/hr IV.SIG Q8H BINH Rx#:[id number] Oral 720 / 720 Anesthesia Amount 3500 / 3500 Cell Saver Amount 750 / 750 Output: Estimated Blood Loss 1500 / 1500 Urine Amount (Catheter) 1523 / 1523 1750 / 1750 Indwelling Urethral Catheter 1523 / 1523 1750 / 1750 Chest Tube Drainage 180 / 180 230 / 230 Pleural/Mediastinal 180 / 180 230 / 230 Narrative: GENERAL: Well-developed well-nourished in no distress SKIN: Warm and dry. CARDIOVASCULAR: Regular rate and rhythm without murmurs, gallops, or rubs. Prevena dressing chest tube in place RESPIRATORY: Breath sounds equal bilaterally. No accessory muscle use. GASTROINTESTINAL: Abdomen soft, non-tender, nondistended. [place] in place bilateral SCD MUSCULOSKELETAL: No cyanosis, or edema. Urinary Catheter Management Indwelling Urethral Catheter: Cath placed during this visit: yes, but has since been removed by the nurse Reason for continuing: Hourly intake/output Insertion date: 09/08/18 Insertion time: 08:00 Removal date: 09/09/18 Removal time: 05:50 Results Labs CBC & Chem 7: 09/09/18 03:55 09/09/18 03:55 Imaging Imaging: Impressions Chest X-Ray 09/09/18 05:00 CONCLUSION: 1. Left chest tube remains present and no pneumothorax is visualized. 2. Marked underinflation with atelectasis at the lung bases. Procedures Procedures: Cardiac catheterization CABG Assessment and Plan (1) Chest pain, rule out acute myocardial infarction: Code(s): R07.9 - Chest pain, unspecified Status: Acute (2) Coronary artery disease: Code(s): I25.10 - Atherosclerotic heart disease of [place] coronary artery without angina pectoris Status: Chronic (3) Hypertension: Code(s): I10 - Essential (primary) hypertension Status: Chronic (4) Unstable angina: Code(s): I20.0 - Unstable angina Status: Acute (5) Hyperlipidemia: Code(s): E78.5 - Hyperlipidemia, unspecified Status: Chronic (6) Hypertension: Code(s): I10 - Essential (primary) hypertension Status: Chronic Plan CAD status post CABG. Stable continue postoperative care per cardiothoracic surgery -continue cardiac regimen including ASA, metoprolol, ACEi, amiodarone and statin. Also on IV Lasix monitor renal function and electrolytes. Pain management on narcotics -telemetry. -LDL of 73, HDL of 50. Leukocytosis Likely a stress reaction. Afebrile. -follow CBC. Prediabetes Hyperglycemia Likely a stress reaction. -A1c 5.8. Prediabetic. PPx: Lovenox when cleared by cardiothoracic surgery Progress Note: Quality VTE Deep Vein Thrombosis/Pulmonary Embolism Present on Admission: No _ (1) Coronary artery disease Qualifiers: Coronary Disease-Associated Artery/Lesion type: [place] artery [place] vs. transplanted heart: [place] heart Associated angina: without angina Qualified Code(s): I25.10 - Atherosclerotic heart disease of [place] coronary artery without angina pectoris (2) Hypertension Qualifiers: Hypertension type: unspecified Qualified Code(s): I10 - Essential (primary) hypertension (3) Hyperlipidemia Qualifiers: Hyperlipidemia type: (4) Hypertension Qualifiers: Hypertension type:
--- NOTE | 2018-09-09 17:29 | P.PNCA ---
Subjective Interval history: Doing well. Sitting up in a chair. No complaints. Medications and Allergies Active Medications: Active Medications Acetaminophen (Tylenol) 500 mg PO Q4H PRN PRN Reason: HEADACHE Al Hydroxide/Mg Hydroxide (Milk Of [place] Sharifq) 30 ml PO DAILY MANNY Albuterol (Duoneb Neb (Prn)) 1 ampul NEB Q2HR NEB PRN PRN Reason: WHEEZING Albuterol (Duoneb Neb (Manny)) 1 ampul NEB Q6HR WHILE AWAKE NEB [facility] Stop: 09/11/18 13:59 Last Admin: 09/09/18 13:22 Dose: 1 ampul Alprazolam (Xanax) 0.25 mg PO Q8H PRN PRN Reason: ANXIETY Amiodarone HCl (Cordarone) 400 mg PO Q8HR [facility] Last Admin: 09/09/18 13:49 Dose: 400 mg Aspirin (Aspirin Chew) 81 mg PO DAILY [facility] Last Admin: 09/09/18 09:15 Dose: 81 mg Atorvastatin Calcium (Lipitor) 80 mg PO HS [facility] Last Admin: 09/08/18 21:34 Dose: 80 mg Bisacodyl (Dulcolax Supp) 10 mg RECTAL PRN PRN PRN Reason: SEE LABEL COMMENTS Chlorhexidine Gluconate (Hibiclens 4% Topical) 1 applicatio TOPICAL [employer]' MODEL [facility] Stop: 09/12/18 14:00 Dextrose (D50w Vial) 50 ml IV.PUSH UNSCH PRN PRN Reason: PER HYPOGLYCEMIA PROTOCOL Docusate Sodium (Colace) 100 mg PO BID [facility] Furosemide (Lasix Inj) 40 mg IV.PUSH BID@0900,1800 [facility] Last Admin: 09/09/18 09:14 Dose: 40 mg Glucagon (Glucagon Inj) 1 mg OTHER PRN PRN PRN Reason: For hypoglycemia Hydralazine HCl (Apresoline Inj) 10 mg IV.PUSH Q4H PRN PRN Reason: SEE LABEL COMMENTS Sodium Chloride (Ns Inj) 500 mls @ 30 mls/hr IV.SIG .Q10H [facility] Cefazolin Sodium/Dextrose (Ancef 2 Gm Premix Inj) 2 gm in 50 mls @ 200 mls/hr IV.SIG Q8H [facility] Stop: 09/10/18 00:14 Last Admin: 09/09/18 16:10 Dose: 200 mls/hr Insulin Aspart (Novolog Insulin Correctional Sugar Inj) 0 unit SQ 02,06,10,14, 18,22 [facility]; Protocol Stop: 09/10/18 10:01 Last Admin: 09/09/18 13:50 Dose: 7 unit Insulin Aspart (Novolog Insulin Correctional Sugar Inj) 0 unit SQ ACHS CORRECT SUGARS [facility]; Protocol Ketorolac Tromethamine (Toradol Inj) 15 mg IV.PUSH Q6H PRN PRN Reason: breakthrough pain Last Admin: 09/09/18 11:52 Dose: 15 mg Lisinopril (Prinivil) 10 mg PO DAILY [facility] Last Admin: 09/09/18 11:09 Dose: 10 mg Metoprolol Tartrate (Lopressor) 12.5 mg PO PH[employer] MODEL [facility] Stop: 09/12/18 14:01 Metoprolol Tartrate (Lopressor) 50 mg PO BID [facility] Last Admin: 09/09/18 09:15 Dose: 50 mg Multivitamins/Minerals (Theragran-M) 1 tab PO DAILY [facility] Ondansetron HCl (Zofran Inj) 4 mg IV.PUSH Q6H PRN PRN Reason: NAUSEA OR VOMITING Oxycodone/Acetaminophen (Percocet 7.5/325 Mg) 1 tab PO Q4H PRN PRN Reason: Acute Pain Last Admin: 09/09/18 16:08 Dose: 1 tab Pantoprazole Sodium (Protonix) 40 mg PO DAILY@06 [facility] Last Admin: 09/09/18 06:03 Dose: 40 mg Polyethylene Glycol (Miralax) 17 gm PO DAILY [facility] Potassium Chloride (Klor-Con 10) 20 meq PO BID [facility] Sennosides (Senokot) 8.6 mg PO HS [facility] Sodium Biphosphate/Sodium Phosphate (Fleets Enema (Adult)) 118 ml RECTAL UNSCH PRN PRN Reason: SEE LABEL COMMENTS Sodium Chloride (Ns Flush) 2 ml IV.FLUSH BID [facility] Last Admin: 09/09/18 09:15 Dose: 2 ml Sodium Chloride (Ns Flush) 2 ml IV.FLUSH PRN PRN PRN Reason: FLUSH AFTER USING IV ACCESS Zolpidem Tartrate (Ambien) 5 mg PO HS PRN PRN Reason: INSOMNIA Last Admin: 09/06/18 21:21 Dose: 5 mg Allergies Allergy/AdvReac Type Severity Reaction Status Date / Time latex Allergy Hives Verified 09/05/18 11:22 Home Medications Medication Instructions Recorded Confirmed Type aspirin 325 mg PO DAILY 09/05/18 09/05/18 History metoprolol succinate 50 mg PO DAILY 09/05/18 09/05/18 History ramipril 10 mg PO DAILY 09/05/18 09/05/18 History simvastatin 40 mg PO QPM 09/05/18 09/05/18 History Physical Exam Vital signs: Vital Signs 09/08/18 19:00 09/08/18 19:30 09/08/18 20:12 Temperature 98.9 F Pulse Rate 77 76 Respiratory Rate 16 16 Blood Pressure 119/67 Pulse Oximetry 99 99 09/08/18 20:44 09/08/18 23:00 09/09/18 02:15 Temperature 98.0 F Pulse Rate 87 86 Respiratory Rate 18 18 18 Blood Pressure 146/78 H Pulse Oximetry 96 97 09/09/18 03:00 09/09/18 03:15 09/09/18 07:00 Temperature 98.8 F 97.7 F Pulse Rate 77 79 72 Respiratory Rate 18 16 18 Blood Pressure 117/50 L 121/63 Pulse Oximetry 99 95 09/09/18 08:00 09/09/18 09:12 09/09/18 11:00 Temperature 98.3 F Pulse Rate 84 87 Respiratory Rate 18 16 Blood Pressure 131/75 Pulse Oximetry 95 95 94 L 09/09/18 13:23 09/09/18 15:00 Temperature 98.4 F Pulse Rate 89 91 H Respiratory Rate 18 18 Blood Pressure 121/67 Pulse Oximetry 94 L Intake & Output 09/08/18 09/09/18 09/09/18 18:59 06:59 18:59 Intake Total 5712 / 5712 1070 / 1070 50 / 50 Output Total 3203 / 3203 1979 / 1979 Balance 2509 / 2509 -910 / -910 50 / 50 Weight 130 kg Intake: IV 1462 / 1462 350 / 350 50 / 50 Precedex Inj 200 MCG In NS Inj 48 ML @ 0.2 MCG/KG/HR 5.85 mls/ hr IV.CONT TITRATE PRN Rx#: [id number] NovoLIN R (IV Infusion) 100 35 / 35 UNIT In NS Inj 99 ML @ 3 UNITS/ HR 3 mls/hr IV.CONT TITRATE PRN Rx#:[id number] Ofirmev Inj 1,000 mg In 100 ml 100 / 100 200 / 200 @ 400 mls/hr IV.SIG Q6H MANNY Rx# :[id number] Buminate 5% Inj 250 ML @ 250 500 / 500 mls/hr IV.SIG UNSCH PRN Rx#: [id number] Calcium Chloride Inj 1 GM In NS 100 / 100 100 / 100 Inj 100 ML @ 100 mls/hr IV.SIG PRN PRN Rx#:[id number] LR 1000 mL Inj 500 ML @ 500 mls 500 / 500 /hr IV.SIG .Q1H PRN Rx#: [id number] Ancef 1 GM Premix Inj 2 gm In 100 / 100 100 ml @ 0 mls/hr IV.SIG .STK- MED ONE Rx#:[id number] Ancef 2 GM Premix Inj 2 gm In 100 / 100 50 / 50 50 / 50 50 ml @ 200 mls/hr IV.SIG Q8H MANNY Rx#:[id number] Oral 720 / 720 Anesthesia Amount 3500 / 3500 Cell Saver Amount 750 / 750 Output: Estimated Blood Loss 1500 / 1500 Urine Amount (Catheter) 1523 / 1523 1750 / 1750 Indwelling Urethral Catheter 1523 / 1523 1750 / 1750 Chest Tube Drainage 180 / 180 230 / 230 Pleural/Mediastinal 180 / 180 230 / 230 - Constitutional no acute distress - Routine HEENT Exam Eye: Present: EOMI, PERRL ENT: Present: mucous membranes moist - Routine Neck Exam Absent: JVD - Routine Respiratory Exam Present: CTA bilaterally - Routine Cardiovascular Exam Present: RRR, murmur - Routine Abdominal Exam Present: soft, normoactive bowel sounds - Routine Extremities Exam Absent: edema - Routine Neurological Exam Present: alert, oriented X3, CN II-XII intact. Absent: sensory deficit, motor deficit - Urinary Catheter Management Indwelling Urethral Catheter Cath placed during this visit: yes, but has since been removed by the nurse Reason for continuing: Hourly intake/output Insertion date: 09/08/18 Insertion time: 08:00 Removal date: 09/09/18 Removal time: 05:50 Results 09/09/18 03:55 09/09/18 03:55 Cardiac Enzymes 09/08/18 Range/Units 15:25 AST 22 (15-37) U/L CBC 09/08/18 09/09/18 Range/Units 15:25 03:55 WBC 10.3 9.3 (4.0-11.0) th/mm3 RBC 3.86 L 3.62 L (4.50-5.90) mil/mm3 Hgb 11.7 L D 11.1 L (13.0-17.0) gm/dL Hct 33.1 L 31.3 L (39.0-51.0) % Plt Count 159 169 (150-450) th/mm3 Neut # (Auto) 8.8 H (1.8-7.7) th/mm3 Lymph # (Auto) 0.7 L (1.0-4.8) th/mm3 Baker # (Auto) 0.7 (0.0-0.9) th/mm3 Eos # (Auto) 0.0 (0.0-0.4) th/mm3 Baso # (Auto) 0.0 (0.0-0.2) th/mm3 Comprehensive Metabolic Panel 09/08/18 09/09/18 Range/Units 15:25 03:55 Sodium 140 139 (136-145) meq/L Potassium 4.3 3.9 (3.5-5.1) meq/L Chloride 109 H 105 (98-107) meq/L Carbon Dioxide 27.3 28.5 (21.0-32.0) meq/L BUN 14 12 (7-18) mg/dL Creatinine 0.59 L 0.58 L (0.60-1.30) mg/dL Calcium 8.3 L 8.0 L (8.5-10.1) mg/dL Direct Bilirubin 0.3 H (0.0-0.2) mg/dL Indirect Bilirubin 0.5 (0.0-0.8) mg/dL AST 22 (15-37) U/L ALT 34 (12-78) U/L Alkaline Phosphatase 58 (45-117) U/L Total Protein 5.1 L D (6.4-8.2) g/dL Albumin 2.9 L (3.4-5.0) g/dL Intake and Output 09/09/18 09/09/18 09/09/18 06:59 14:59 22:59 Intake Total 870 / 870 50 / 50 Output Total 1979 Balance -1110 / -1110 50 / 50 Intake: IV 150 / 150 50 / 50 Ofirmev Inj 1,000 mg In 100 ml 100 / 100 @ 400 mls/hr IV.SIG Q6H MANNY Rx# :[id number] Ancef 2 GM Premix Inj 2 gm In 50 / 50 50 / 50 50 ml @ 200 mls/hr IV.SIG Q8H MANNY Rx#:[id number] Oral 720 / 720 Output: Urine Amount (Catheter) 1750 / 1750 Indwelling Urethral Catheter 1750 / 1750 Chest Tube Drainage 230 / 230 Pleural/Mediastinal 230 / 230 Other: Weight 130 kg - Imaging and Cardiology Imaging: Impressions Chest X-Ray 09/08/18 12:34 CONCLUSION: 1. Status post median sternotomy. 2. Left-sided chest tube without pneumothorax. 3. Left upper lobe subsegmental atelectasis. Chest X-Ray 09/09/18 05:00 CONCLUSION: 1. Left chest tube remains present and no pneumothorax is visualized. 2. Marked underinflation with atelectasis at the lung bases. Assessment and Plan - Assessment (1) Unstable angina Code(s): I20.0 - Unstable angina Status: Acute - Plan Unstable angina Status post coronary artery bypass surgery. Postoperative course has been uncomplicated. Continue guideline directed medical care. We will sign off, but available for questions. Follow-up in outpatient setting.
[2018-09-09] MEDS: Docusate Sodium 100 MG Capsule PO SCH (21:00)
[2018-09-10] MEDS: Ketorolac Inj 30 MG/ML (IVP) Vial IV.PUSH PRN ×4 (00:14→21:22)
[2018-09-10] MEDS: Insulin NovoLOG Aspart Correctional Sugar Inj SQ SCH ×7 (00:14→21:46)
[2018-09-10] MEDS: ceFAZolin 2 GM Premix Inj 2 GM/50 ML PIGGYBACK IV.SIG SCH (00:15)
[2018-09-10] MEDS: Amiodarone 200 MG Tablet PO SCH ×3 (05:02→21:23)
[2018-09-10 05:26] LABS: Baso % (Auto) 0.2 % (0.0-2.0); Eos % (Auto) 0.2 % (0.0-4.0); Hematocrit 31.1 % (39.0-51.0); Hemoglobin 10.6 gm/dL (13.0-17.0); Lymph # (Auto) 1.6 th/mm3 (1.0-4.8); Lymph % (Auto) 17.7 % (9.0-44.0); Mean Corpuscular HGB Conc 34.2 % (32.0-36.0); Mean Corpuscular Hemoglobin 29.7 pg (27.0-34.0); Mean Platelet Volume 6.8 fL (7.0-11.0); Mono % (Auto) 11.2 % (0.0-8.0); Neut # (Auto) 6.5 th/mm3 (1.8-7.7); Neut % (Auto) 70.7 % (16.0-70.0); Platelet Count 194 th/mm3 (150-450); Red Blood Count 3.58 mil/mm3 (4.50-5.90); Red Cell Distribution Width 12.7 % (11.6-17.2); White Blood Count 9.2 th/mm3 (4.0-11.0)
[2018-09-10 05:48] LABS: Anion Gap 6 meq/L (5-15); Blood Urea Nitrogen 14 mg/dL (7-18); Carbon Dioxide 31.5 meq/L (21.0-32.0); Chloride 100 meq/L (98-107); Glomerular Filtration Rate Greater Than 89 mL/min (>89); Glucose,Random 121 mg/dL (74-106); Magnesium 1.9 mg/dL (1.5-2.5); Potassium 3.9 meq/L (3.5-5.1); Sodium 137 meq/L (136-145)
[2018-09-10] MEDS: Docusate Sodium 100 MG Capsule PO SCH ×2 (08:23→21:25)
[2018-09-10] MEDS: Multivitamin/Minerals Therapeutic Tablet PO SCH (08:23)
[2018-09-10] MEDS: Metoprolol Tartrate 50 MG Tablet PO SCH ×2 (08:25→21:23)
[2018-09-10] MEDS: Polyethylene Glycol 3350 17 GM Packet PO SCH (08:25)
--- NOTE | 2018-09-10 09:39 | P.PNIM ---
Subjective Interval history: Follow-up CABG. He is doing well chest tube drainage over 200 mL Physical Exam Vital signs: Vital Signs 09/09/18 11:00 09/09/18 13:23 09/09/18 15:00 Temperature 98.3 F 98.4 F Pulse Rate 87 89 91 H Respiratory Rate 16 18 18 Blood Pressure 131/75 121/67 Pulse Oximetry 94 L 94 L 09/09/18 19:00 09/09/18 19:57 09/09/18 20:13 Temperature Pulse Rate 85 80 Respiratory Rate 17 Blood Pressure Pulse Oximetry 97 97 09/09/18 20:45 09/09/18 20:48 09/09/18 22:00 Temperature 97.5 F L 97.9 F Pulse Rate 85 85 91 H Respiratory Rate 18 20 Blood Pressure 105/52 L 104/59 L 109/54 L Pulse Oximetry 96 96 09/09/18 23:00 09/09/18 23:49 09/10/18 01:12 Temperature 97.9 F Pulse Rate 91 H 91 H 84 Respiratory Rate 20 Blood Pressure 104/56 L 98/54 L Pulse Oximetry 96 09/10/18 03:00 09/10/18 07:00 09/10/18 08:00 Temperature 98.5 F Pulse Rate 86 87 Respiratory Rate 20 Blood Pressure 105/63 Pulse Oximetry 94 L 97 Intake & Output 09/09/18 09/10/18 09/10/18 18:59 06:59 18:59 Intake Total 145 / 145 770 / 770 Output Total 975 / 975 2400 / 2400 Balance -830 / -830 -1630 / -1630 Weight 129 kg Intake: IV 145 / 145 50 / 50 Cleviprex Inj 25 mg In 50 ml @ 12 1 MG/HR 2 mls/hr IV.CONT TITRATE PRN Rx#:[id number] Precedex Inj 200 MCG In NS Inj 33 / 33 48 ML @ 0.2 MCG/KG/HR 5.85 mls/ hr IV.CONT TITRATE PRN Rx#: [id number] Ancef 2 GM Premix Inj 2 gm In 100 / 100 50 / 50 50 ml @ 200 mls/hr IV.SIG Q8H BINH Rx#:[id number] Oral 720 / 720 Output: Urine 825 / 825 2250 / 2250 Chest Tube Drainage 150 / 150 150 / 150 Pleural/Mediastinal 150 / 150 150 / 150 Other: # Voids 3 5 Date of Last Bowel Movement 09/08/18 Narrative: GENERAL: Well-developed well-nourished in no distress SKIN: Warm and dry. CARDIOVASCULAR: Regular rate and rhythm without murmurs, gallops, or rubs. Prevena dressing chest tube in place RESPIRATORY: Breath sounds equal bilaterally. No accessory muscle use. GASTROINTESTINAL: Abdomen soft, non-tender, nondistended. Bilateral SCD MUSCULOSKELETAL: No cyanosis, or edema. Urinary Catheter Management Indwelling Urethral Catheter: Cath placed during this visit: yes, but has since been removed by the nurse Reason for continuing: Hourly intake/output Insertion date: 09/08/18 Insertion time: 08:00 Removal date: 09/09/18 Removal time: 05:50 Results Labs CBC & Chem 7: 09/10/18 04:45 09/10/18 04:45 Procedures Procedures: Cardiac catheterization CABG Assessment and Plan (1) Chest pain, rule out acute myocardial infarction: Code(s): R07.9 - Chest pain, unspecified Status: Acute (2) Coronary artery disease: Code(s): I25.10 - Atherosclerotic heart disease of [place] coronary artery without angina pectoris Status: Chronic (3) Hypertension: Code(s): I10 - Essential (primary) hypertension Status: Chronic (4) Unstable angina: Code(s): I20.0 - Unstable angina Status: Acute (5) Hyperlipidemia: Code(s): E78.5 - Hyperlipidemia, unspecified Status: Chronic (6) Hypertension: Code(s): I10 - Essential (primary) hypertension Status: Chronic Plan CAD status post CABG. Stable continue postoperative care per cardiothoracic surgery -continue cardiac regimen including ASA, metoprolol, ACEi, amiodarone and statin. Also on IV Lasix monitor renal function and electrolytes. Pain management on narcotics -telemetry. -LDL of 73, HDL of 50. Leukocytosis. Resolved Likely a stress reaction. Afebrile. -follow CBC. Prediabetes Hyperglycemia Likely a stress reaction. -A1c 5.8. Prediabetic. PPx: SCD and early ambulation for DVT prophylaxis. Lovenox when cleared by cardiothoracic surgery Progress Note: Quality VTE Deep Vein Thrombosis/Pulmonary Embolism Present on Admission: No _ (1) Coronary artery disease Qualifiers: Associated angina: without angina Coronary Disease-Associated Artery/Lesion type: [place] artery [place] vs. transplanted heart: [place] heart Qualified Code (s): I25.10 - Atherosclerotic heart disease of [place] coronary artery without angina pectoris (2) Hyperlipidemia Qualifiers: Hyperlipidemia type: (3) Hypertension Qualifiers: Hypertension type: unspecified Qualified Code(s): I10 - Essential (primary) hypertension (4) Hypertension Qualifiers: Hypertension type:
--- NOTE | 2018-09-10 11:08 | P.PNCV ---
- Note CVT: Post Op Day #: 2 Subjective/Hospital Course: A 58-year-old male who has history of coronary artery disease with prior stent x2 in 2003, who presented to work this morning and developed some midsternal chest pain 06/08 and felt diaphoretic, also nauseated and then presented to the emergency department, has not been feeling well for the past couple of months, feeling tired and fatigued. He described the pain as a band around his chest. This was the worst pain that he ever experienced. Pain lasted about 10 minutes and resided on its own. His EKG showed no acute change. He had unremarkable troponins, but due to his past medical history of cardiac stenting , he went to the laboratory monitor this morning by Dr. Cote, had a heart catheterization which showed an EF of 45%, left main disease of 40%, proximal LAD 70%, the diagonal 90%, the circ 70%, the OM 70%, RCA 70% the ramus was 95%. We were consulted to evaluate for coronary artery bypass grafting. PAST MEDICAL HISTORY: Includes coronary artery disease, hypertension, borderline diabetic, 09/07 pt had short episode of chest pain last night received dose of morphine / resolved pain, NTG ordered ( did not require starting) remains pain free at present carotid unremarkable US gallbladder : no gallstones, fatty liver stable for surgery in am add nitro paste 09/08 same Date of procedure: 09/08/18 Procedure: CABG x 5 SALINAS to LAD -good SVG to Ramus - fair SVG to D1 - good SVG to L PDA - good SVG to RCA - good EVH post EF 45% 3500cc crystalloid, 750cc cell saver extubated after surgery 09/09 pt up in chair, some anxiety , painful add prn xanax , increase dose of pain med and add toradol resume BB , shawn , scheduled diuresis leave chest tube in 09/10/18 Doing well, no complaints today Chest tube output 150ml/12 hrs Objective: Vital Signs - 24 hr 09/09/18 13:23 09/09/18 15:00 09/09/18 19:00 Temperature 98.4 F Pulse Rate 89 91 H 85 Respiratory Rate 18 18 Blood Pressure 121/67 Pulse Oximetry 94 L 09/09/18 19:57 09/09/18 20:13 09/09/18 20:45 Temperature Pulse Rate 80 85 Respiratory Rate 17 Blood Pressure 105/52 L Pulse Oximetry 97 97 09/09/18 20:48 09/09/18 22:00 09/09/18 23:00 Temperature 97.5 F L 97.9 F Pulse Rate 85 91 H 91 H Respiratory Rate 18 20 Blood Pressure 104/59 L 109/54 L Pulse Oximetry 96 96 09/09/18 23:49 09/10/18 01:12 09/10/18 03:00 Temperature 97.9 F Pulse Rate 91 H 84 86 Respiratory Rate 20 Blood Pressure 104/56 L 98/54 L Pulse Oximetry 96 09/10/18 07:00 09/10/18 08:00 Temperature 98.5 F Pulse Rate 87 Respiratory Rate 20 Blood Pressure 105/63 Pulse Oximetry 94 L 97 Labs: Laboratory Results - last 12 hr 09/09/18 09/10/18 09/10/18 23:48 03:37 04:45 WBC 9.2 RBC 3.58 L Hgb 10.6 L Hct 31.1 L MCV 87.0 MCH 29.7 MCHC 34.2 RDW 12.7 Plt Count 194 MPV 6.8 L Neut % (Auto) 70.7 H Lymph % (Auto) 17.7 Barron % (Auto) 11.2 H Eos % (Auto) 0.2 Baso % (Auto) 0.2 Neut # (Auto) 6.5 Lymph # (Auto) 1.6 Barron # (Auto) 1.0 H Eos # (Auto) 0.0 Baso # (Auto) 0.0 WBC Differential . Differential Comment Auto diff final Sodium Potassium Chloride Carbon Dioxide Anion Gap BUN Creatinine Estimated GFR POC Glucose 147 H 118 H Random Glucose Calcium Magnesium 09/10/18 04:45 WBC RBC Hgb Hct MCV MCH MCHC RDW Plt Count MPV Neut % (Auto) Lymph % (Auto) Barron % (Auto) Eos % (Auto) Baso % (Auto) Neut # (Auto) Lymph # (Auto) [place]ron # (Auto) Eos # (Auto) Baso # (Auto) WBC Differential Differential Comment Sodium 137 Potassium 3.9 Chloride 100 Carbon Dioxide 31.5 Anion Gap 6 BUN 14 Creatinine 0.72 Estimated GFR Greater than 89 POC Glucose Random Glucose 121 H Calcium 8.0 L Magnesium 1.9 Result Diagrams: 09/10/18 04:45 09/10/18 04:45 Imaging: Gallbladder Ultrasound 09/06/18 00:00 CONCLUSION: 1. Enlarged and fatty infiltrated liver. 2. Right upper quadrant ultrasound within normal limits. No abnormality seen of the gallbladder. Carotid Doppler Study 09/06/18 14:00 CONCLUSION: 1. Right Internal Carotid Artery: Mild atherosclerosis at the bifurcation without hemodynamically significant narrowing. 2. Left Internal Carotid Artery: Mild atherosclerosis at the bifurcation without hemodynamically significant narrowing. Lower Extremity Ultrasound 09/06/18 14:00 CONCLUSION: Bilateral greater saphenous vein mapping as described. Venous Doppler Study 09/06/18 14:00 CONCLUSION: Negative study. No venous thrombosis of either lower extremity. Chest X-Ray 09/09/18 05:00 CONCLUSION: 1. Left chest tube remains present and no pneumothorax is visualized. 2. Marked underinflation with atelectasis at the lung bases. Cardiovascular: RRR Telemetry: NSR Pulmonary: CTA GI/: NABS Incision: dry and intact CT: as above - Plan (1) Chest pain (2) Coronary artery disease (3) Hypertension (6) S/P coronary artery bypass graft x 5 Plan: Neuro: add low dose prn xanax pain control CV: ASA, statin, BB , amiodarone scheduled diuresis Resp: pulm toileting nebs, ezpap acapella GI: motility meds Endo: diabetic diet insulin sliding scale prophy: protonix, nebs CM to eval for [facility] D/C ACEI Encourage ambulation continue chest tubes Diurese (1) Chest pain Qualifiers: Chest pain type: unspecified Qualified Code(s): R07.9 - Chest pain, unspecified (2) Coronary artery disease Qualifiers: Coronary Disease-Associated Artery/Lesion type: [place] artery [place] vs. transplanted heart: [place] heart Associated angina: without angina Qualified Code(s): I25.10 - Atherosclerotic heart disease of [place] coronary artery without angina pectoris (3) Hypertension Qualifiers: Hypertension type: unspecified Qualified Code(s): I10 - Essential (primary) hypertension
[2018-09-11] MEDS: Zolpidem Tartrate 5 MG Tablet PO PRN (01:15)
[2018-09-11] MEDS ORDERED: Sod Phosphate/Sod Biphosphate (Adult) Enema 133 ML Bottle RECTAL PRN (06:00)
[2018-09-11] MEDS: Amiodarone 200 MG Tablet PO SCH ×3 (06:56→21:36)
[2018-09-11] MEDS: Insulin NovoLOG Aspart Correctional Sugar Inj SQ SCH ×3 (07:57→16:12)
[2018-09-11] MEDS: Lisinopril 10 MG Tablet PO SCH (08:01)
[2018-09-11] MEDS: Docusate Sodium 100 MG Capsule PO SCH ×2 (08:02→21:38)
[2018-09-11] MEDS: Multivitamin/Minerals Therapeutic Tablet PO SCH (09:42)
[2018-09-11] MEDS: Metoprolol Tartrate 50 MG Tablet PO SCH ×2 (09:43→21:44)
[2018-09-11] MEDS: Polyethylene Glycol 3350 17 GM Packet PO SCH (09:44)
[2018-09-11] MEDS: Ketorolac Inj 30 MG/ML (IVP) Vial IV.PUSH PRN ×2 (10:04→16:11)
--- NOTE | 2018-09-11 12:01 | P.PNIM ---
Subjective Interval history: Follow-up CABG. Decreased chest tube drainage for discontinuation of chest tube today. Positive bowel movement yesterday Physical Exam Vital signs: Vital Signs 09/10/18 12:55 09/10/18 13:55 09/10/18 15:00 Temperature 97.5 F L Pulse Rate 85 78 Respiratory Rate 20 16 Blood Pressure 114/60 Pulse Oximetry 95 96 09/10/18 16:30 09/10/18 19:00 09/10/18 20:00 Temperature 98.7 F Pulse Rate 85 82 Respiratory Rate 16 Blood Pressure 124/62 Pulse Oximetry 96 96 09/10/18 20:24 09/10/18 21:00 09/10/18 21:55 Temperature Pulse Rate 85 94 H Respiratory Rate 18 16 Blood Pressure Pulse Oximetry 95 09/10/18 22:00 09/10/18 22:15 09/10/18 23:00 Temperature 98.7 F Pulse Rate 86 83 Respiratory Rate 16 16 Blood Pressure 136/71 Pulse Oximetry 96 09/11/18 00:00 09/11/18 01:00 09/11/18 02:00 Temperature Pulse Rate 76 78 74 Respiratory Rate Blood Pressure Pulse Oximetry 96 09/11/18 03:00 09/11/18 04:00 09/11/18 04:49 Temperature Pulse Rate 83 64 Respiratory Rate 16 16 Blood Pressure Pulse Oximetry 95 09/11/18 07:56 09/11/18 08:00 09/11/18 09:00 Temperature 97.5 F L Pulse Rate 82 80 Respiratory Rate 16 16 Blood Pressure 124/86 Pulse Oximetry 96 09/11/18 10:00 09/11/18 10:52 Temperature Pulse Rate 87 81 Respiratory Rate Blood Pressure Pulse Oximetry Intake & Output 09/10/18 09/11/18 09/11/18 18:59 06:59 18:59 Intake Total 1000 / 1000 980 / 980 50 / 50 Output Total 870 / 870 1450 / 1450 Balance 130 / 130 -470 / -470 50 / 50 Weight 129 kg Intake: IV 50 / 50 Oral 1000 / 1000 980 / 980 Output: Urine 800 / 800 1450 / 1450 Chest Tube Drainage 70 / 70 Pleural/Mediastinal 70 / 70 Other: Date of Last Bowel Movement 09/10/18 09/10/18 09/10/18 # Bowel Movements 1 0 Narrative: GENERAL: Well-developed well-nourished in no distress SKIN: Warm and dry. CARDIOVASCULAR: Regular rate and rhythm without murmurs, gallops, or rubs. Prevena dressing chest tube in place RESPIRATORY: Breath sounds equal bilaterally. No accessory muscle use. GASTROINTESTINAL: Abdomen soft, non-tender, nondistended. MUSCULOSKELETAL: No cyanosis, but with bilateral lower extremity pitting edema. [place] Urinary Catheter Management Indwelling Urethral Catheter: Cath placed during this visit: yes, but has since been removed by the nurse Reason for continuing: Hourly intake/output Insertion date: 09/08/18 Insertion time: 08:00 Removal date: 09/09/18 Removal time: 05:50 Results Labs CBC & Chem 7: 09/10/18 04:45 09/11/18 11:35 Imaging Imaging: ITS Impressions Gallbladder Ultrasound 09/06/18 00:00 CONCLUSION: 1. Enlarged and fatty infiltrated liver. 2. Right upper quadrant ultrasound within normal limits. No abnormality seen of the gallbladder. Carotid Doppler Study 09/06/18 14:00 CONCLUSION: 1. Right Internal Carotid Artery: Mild atherosclerosis at the bifurcation without hemodynamically significant narrowing. 2. Left Internal Carotid Artery: Mild atherosclerosis at the bifurcation without hemodynamically significant narrowing. Lower Extremity Ultrasound 09/06/18 14:00 CONCLUSION: Bilateral greater saphenous vein mapping as described. Venous Doppler Study 09/06/18 14:00 CONCLUSION: Negative study. No venous thrombosis of either lower extremity. Chest X-Ray 09/09/18 05:00 CONCLUSION: 1. Left chest tube remains present and no pneumothorax is visualized. 2. Marked underinflation with atelectasis at the lung bases. Procedures Procedures: Cardiac catheterization CABG Assessment and Plan (1) Chest pain, rule out acute myocardial infarction: Code(s): R07.9 - Chest pain, unspecified Status: Acute (2) Coronary artery disease: Code(s): I25.10 - Atherosclerotic heart disease of [place] coronary artery without angina pectoris Status: Chronic (3) Hypertension: Code(s): I10 - Essential (primary) hypertension Status: Chronic (4) Unstable angina: Code(s): I20.0 - Unstable angina Status: Acute (5) Hyperlipidemia: Code(s): E78.5 - Hyperlipidemia, unspecified Status: Chronic (6) Hypertension: Code(s): I10 - Essential (primary) hypertension Status: Chronic Plan CAD status post CABG. Stable continue postoperative care per cardiothoracic surgery for removal of chest tube today -continue cardiac regimen including ASA, metoprolol, amiodarone and statin. Also on IV Lasix monitor renal function and electrolytes. [place] inhibitor discontinued by CVT pain management on narcotics -telemetry. -LDL of 73, HDL of 50. Leukocytosis. Resolved Likely a stress reaction. Afebrile. -follow CBC. Prediabetes Hyperglycemia Likely a stress reaction. -A1c 5.8. Prediabetic. PPx: SCD and early ambulation for DVT prophylaxis. Lovenox when cleared by cardiothoracic surgery Will discharge tomorrow with home care Progress Note: Quality VTE Deep Vein Thrombosis/Pulmonary Embolism Present on Admission: No _ (1) Coronary artery disease Qualifiers: Associated angina: without angina Coronary Disease-Associated Artery/Lesion type: [place] artery [place] vs. transplanted heart: [place] heart Qualified Code (s): I25.10 - Atherosclerotic heart disease of [place] coronary artery without angina pectoris (2) Hyperlipidemia Qualifiers: Hyperlipidemia type: (3) Hypertension Qualifiers: Hypertension type: unspecified Qualified Code(s): I10 - Essential (primary) hypertension (4) Hypertension Qualifiers: Hypertension type:
[2018-09-11 12:41] LABS: Anion Gap 7 meq/L (5-15); Blood Urea Nitrogen 18 mg/dL (7-18); Calcium 8.6 mg/dL (8.5-10.1); Chloride 96 meq/L (98-107); Glomerular Filtration Rate Greater Than 89 mL/min (>89); Glucose,Random 94 mg/dL (74-106); Magnesium 2.3 mg/dL (1.5-2.5); Potassium 4.1 meq/L (3.5-5.1); Sodium 134 meq/L (136-145)
--- NOTE | 2018-09-11 12:49 | P.PNCV ---
- Note CVT: Post Op Day #: 3 Subjective/Hospital Course: A 58-year-old male who has history of coronary artery disease with prior stent x2 in 2003, who presented to work this morning and developed some midsternal chest pain 06/08 and felt diaphoretic, also nauseated and then presented to the emergency department, has not been feeling well for the past couple of months, feeling tired and fatigued. He described the pain as a band around his chest. This was the worst pain that he ever experienced. Pain lasted about 10 minutes and resided on its own. His EKG showed no acute change. He had unremarkable troponins, but due to his past medical history of cardiac stenting , he went to the labor delivery rn this morning by Dr. Cote, had a heart catheterization which showed an EF of 45%, left main disease of 40%, proximal LAD 70%, the diagonal 90%, the circ 70%, the OM 70%, RCA 70% the ramus was 95%. We were consulted to evaluate for coronary artery bypass grafting. PAST MEDICAL HISTORY: Includes coronary artery disease, hypertension, borderline diabetic, 09/07 pt had short episode of chest pain last night received dose of morphine / resolved pain, NTG ordered ( did not require starting) remains pain free at present carotid unremarkable US gallbladder : no gallstones, fatty liver stable for surgery in am add nitro paste 09/08 same Date of procedure: 09/08/18 Procedure: CABG x 5 SLAINAS to LAD -good SVG to Ramus - fair SVG to D1 - good SVG to L PDA - good SVG to RCA - good EVH post EF 45% 3500cc crystalloid, 750cc cell saver extubated after surgery 09/09 pt up in chair, some anxiety , painful add prn xanax , increase dose of pain med and add toradol resume BB , shawn , scheduled diuresis leave chest tube in 09/10/18 Doing well, no complaints today Chest tube output 150ml/12 hrs 09/11/18 Doing very well, no complaints Objective: Vital Signs - 24 hr 09/10/18 12:55 09/10/18 13:55 09/10/18 15:00 Temperature 97.5 F L Pulse Rate 85 78 Respiratory Rate 20 16 Blood Pressure 114/60 Pulse Oximetry 95 96 09/10/18 16:30 09/10/18 19:00 09/10/18 20:00 Temperature 98.7 F Pulse Rate 85 82 Respiratory Rate 16 Blood Pressure 124/62 Pulse Oximetry 96 96 09/10/18 20:24 09/10/18 21:00 09/10/18 21:55 Temperature Pulse Rate 85 94 H Respiratory Rate 18 16 Blood Pressure Pulse Oximetry 95 09/10/18 22:00 09/10/18 22:15 09/10/18 23:00 Temperature 98.7 F Pulse Rate 86 83 Respiratory Rate 16 16 Blood Pressure 136/71 Pulse Oximetry 96 09/11/18 00:00 09/11/18 01:00 09/11/18 02:00 Temperature Pulse Rate 76 78 74 Respiratory Rate Blood Pressure Pulse Oximetry 96 09/11/18 03:00 09/11/18 04:00 09/11/18 04:49 Temperature Pulse Rate 83 64 Respiratory Rate 16 16 Blood Pressure Pulse Oximetry 95 09/11/18 07:56 09/11/18 08:00 09/11/18 09:00 Temperature 97.5 F L Pulse Rate 82 80 Respiratory Rate 16 16 Blood Pressure 124/86 Pulse Oximetry 96 09/11/18 10:00 09/11/18 10:52 Temperature Pulse Rate 87 81 Respiratory Rate Blood Pressure Pulse Oximetry Labs: Laboratory Results - last 12 hr 09/11/18 09/11/18 09/11/18 07:39 11:28 11:35 Sodium 134 L Potassium 4.1 Chloride 96 L Carbon Dioxide 31.0 Anion Gap 7 BUN 18 Creatinine 0.79 Estimated GFR Greater than 89 POC Glucose 119 H 109 Random Glucose 94 Calcium 8.6 Magnesium 2.3 Result Diagrams: 09/10/18 04:45 09/11/18 11:35 Imaging: Gallbladder Ultrasound 09/06/18 00:00 CONCLUSION: 1. Enlarged and fatty infiltrated liver. 2. Right upper quadrant ultrasound within normal limits. No abnormality seen of the gallbladder. Carotid Doppler Study 09/06/18 14:00 CONCLUSION: 1. Right Internal Carotid Artery: Mild atherosclerosis at the bifurcation without hemodynamically significant narrowing. 2. Left Internal Carotid Artery: Mild atherosclerosis at the bifurcation without hemodynamically significant narrowing. Lower Extremity Ultrasound 09/06/18 14:00 CONCLUSION: Bilateral greater saphenous vein mapping as described. Venous Doppler Study 09/06/18 14:00 CONCLUSION: Negative study. No venous thrombosis of either lower extremity. Chest X-Ray 09/09/18 05:00 CONCLUSION: 1. Left chest tube remains present and no pneumothorax is visualized. 2. Marked underinflation with atelectasis at the lung bases. Cardiovascular: RRR Telemetry: NSR Pulmonary: CTA GI/: NABS Incision: dry and intact - Plan (1) Chest pain (2) Coronary artery disease (3) Hypertension (6) S/P coronary artery bypass graft x 5 Plan: Neuro: add low dose prn xanax pain control CV: ASA, statin, BB , amiodarone scheduled diuresis Resp: pulm toileting nebs, ezpap acapella GI: motility meds Endo: diabetic diet insulin sliding scale prophy: protonix, nebs CM to eval for [facility] Remove chest tubes D/C in AM Start Plavix (1) Chest pain Qualifiers: Chest pain type: unspecified Qualified Code(s): R07.9 - Chest pain, unspecified (2) Coronary artery disease Qualifiers: Coronary Disease-Associated Artery/Lesion type: [place] artery [place] vs. transplanted heart: [place] heart Associated angina: without angina Qualified Code(s): I25.10 - Atherosclerotic heart disease of [place] coronary artery without angina pectoris (3) Hypertension Qualifiers: Hypertension type: unspecified Qualified Code(s): I10 - Essential (primary) hypertension
[2018-09-12] MEDS: Insulin NovoLOG Aspart Correctional Sugar Inj SQ SCH ×3 (00:28→11:57)
[2018-09-12] MEDS: Amiodarone 200 MG Tablet PO SCH (05:49)
[2018-09-12 07:08] LABS: Anion Gap 7 meq/L (5-15); Blood Urea Nitrogen 20 mg/dL (7-18); Calcium 8.6 mg/dL (8.5-10.1); Carbon Dioxide 29.6 meq/L (21.0-32.0); Chloride 98 meq/L (98-107); Glomerular Filtration Rate Greater Than 89 mL/min (>89); Glucose,Random 109 mg/dL (74-106); Magnesium 2.4 mg/dL (1.5-2.5); Potassium 4.5 meq/L (3.5-5.1); Sodium 135 meq/L (136-145)
[2018-09-12] MEDS: Multivitamin/Minerals Therapeutic Tablet PO SCH (08:03)
[2018-09-12] MEDS: Docusate Sodium 100 MG Capsule PO SCH (08:04)
[2018-09-12] MEDS: Metoprolol Tartrate 50 MG Tablet PO SCH (08:04)
[2018-09-12] MEDS: Polyethylene Glycol 3350 17 GM Packet PO SCH (08:05)
--- NOTE | 2018-09-12 08:53 | P.DS ---
DS: Providers Date of admission: 09/08/18 11:40 Primary care physician: UNKNOWN Consults: 09/06/18 08:14 Consult to Cardiology Routine Consulting Provider: Griselda Rawls Does the patient have a Cda Teacher who follows them?: No Preferred Psychiatric Mental Health Nurse:: Anthony Cote Reason for Consultation: Chest pain. Notified:: Service Spoke with:: Tom Date Notified:: 09/06/18 Time Notified:: 08:29 Comments:: Queta at Dr Barnes office said give to addiction specialist for service, Dr Cote would not take unless [facility] Ordering Provider: SELENE 09/06/18 09:26 Consult to Cardiothoracic Surgery Routine Consulting Provider: Nick Cardenas Reason for Consultation: CABG Notified:: Physician Spoke with:: Dr. Cardenas Date Notified:: 09/06/18 Time Notified:: 10:07 Ordering Provider: EVAN Brief History from admission: 58-year-old male with known coronary artery disease, x2 cardiac stents, and hypertension presents emergency room for further evaluation of chest pain. 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 Prior to surgical case reported nausea and "dry heaving." During a surgical case initially felt lightheaded with blurred vision, requiring him to walked out of the OR. Symptoms resolved within a few minutes. Upon returning to OR reports becoming diffusely diaphoretic and nauseous. Denies any chest pain during with above symptoms. It was at this time, he was sent to Er for further evaluation. Initially decided not to go to ER and walked his car. Once in car developed substernal crushing pressure. Described as a tight band around the center of his chest. At this time he walked to ER for further evaluation. No associated symptoms of nausea, vomiting, dyspnea, or diaphoresis. Duration 10 minutes. No precipitating or relieving factors. States discomfort resolved on its own prior to medication given in ER. States EKG was completed during time of chest pain. Denies similar pain in the past, did not remind him of past cardiac pain when x2 cardiac stents where placed in 2003. Does not follow with a family day care worker. No further chest pain and currently chest pain free. Past cardiac testing 11/12/15 Lexiscan Conclusion: Decreased ejection fraction of 44% with possible dilated chamber. Some decreased perfusion to anterior wall without dyskinetic or dysrhythmic areas. (Dr. Montes reviewed the images of patient's Lexiscan and found to be nonischemic and was discharged home increasing Lamisil to 10 mg daily.) 2004 x2 cardiac stents in circumflex and diagonal Social history Known hypertension and coronary artery disease. Prescribed a moderate dose cholesterol medication. Denies diabetes. Former smoker, quit 2003. 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 Patient update on day of discharge: Patient reports pain controlled. No shortness of breath. Had chest tube out yesterday wants to go home today. No other concerns. DS: Diagnosis Discharge Diagnosis (1) S/P coronary artery bypass graft x 5: Status: Acute Diagnosis: Principal (2) Chest pain, rule out acute myocardial infarction: Status: Resolved Diagnosis: Principal (3) Coronary artery disease: Status: Chronic Diagnosis: Principal (4) Hypertension: Status: Chronic Diagnosis: Secondary (5) Unstable angina: Status: Acute Diagnosis: Principal (6) Hyperlipidemia: Status: Chronic Diagnosis: Secondary (7) Hypertension: Status: Chronic Diagnosis: Secondary DS: Summary 58-year-old white male was admitted for unstable angina with cardiac catheterization found significant coronary artery disease requiring CABG x5 with Dr. Juanita Russell. Patient had an uneventful postoperative course. He was placed on cardiac regimen including aspirin, Plavix, metoprolol, amiodarone, and statin. He was then transitioned home with home health care with outpatient follow-up with cardiothoracic surgery. Time Spent with Patient Total time spent providing and/or coordinating discharge services: Less than 30 minutes Quality: VTE Deep Vein Thrombosis/Pulmonary Embolism Present on Admission: No Results Procedures completed during hospitalization: Cardiac catheterization CABG Labs on day of discharge: Labs from last 24 hours 09/12/18 09/12/18 09/11/18 07:41 06:26 21:49 Sodium 135 L Potassium 4.5 Chloride 98 Carbon Dioxide 29.6 Anion Gap 7 BUN 20 H Creatinine 0.80 Estimated GFR Greater than 89 POC Glucose 105 102 Random Glucose 109 H Calcium 8.6 Magnesium 2.4 09/11/18 09/11/18 09/11/18 16:11 11:35 11:28 Sodium 134 L Potassium 4.1 Chloride 96 L Carbon Dioxide 31.0 Anion Gap 7 BUN 18 Creatinine 0.79 Estimated GFR Greater than 89 POC Glucose 108 109 Random Glucose 94 Calcium 8.6 Magnesium 2.3 Impressions ITS Impressions Gallbladder Ultrasound 09/06/18 00:00 CONCLUSION: 1. Enlarged and fatty infiltrated liver. 2. Right upper quadrant ultrasound within normal limits. No abnormality seen of the gallbladder. Carotid Doppler Study 09/06/18 14:00 CONCLUSION: 1. Right Internal Carotid Artery: Mild atherosclerosis at the bifurcation without hemodynamically significant narrowing. 2. Left Internal Carotid Artery: Mild atherosclerosis at the bifurcation without hemodynamically significant narrowing. Lower Extremity Ultrasound 09/06/18 14:00 CONCLUSION: Bilateral greater saphenous vein mapping as described. Venous Doppler Study 09/06/18 14:00 CONCLUSION: Negative study. No venous thrombosis of either lower extremity. Chest X-Ray 09/09/18 05:00 CONCLUSION: 1. Left chest tube remains present and no pneumothorax is visualized. 2. Marked underinflation with atelectasis at the lung bases. Discharge Plan Discharge Disposition Patient Disposition: W/Home Health Service Discharge Condition Condition: Stable Discharge Order Discharge Orders: Discharge Order (Routine); Ordered 09/11/18 Ordered By: Minh Kiser Physicians Team Primary Care Provider: UNKNOWN, Attending Provider: Yahaira Saleh Other Providers: Griselda Rawls ; Nick Cardenas Rxs /Orders / Referrals /Forms Prescriptions: New aspirin 81 mg Tablet,Chewable 81 mg PO DAILY Qty: 30 RF: 0 atorvastatin 80 mg Tablet 80 mg PO HS Qty: 30 RF: 0 metoprolol tartrate 50 mg Tablet 50 mg PO BID Qty: 60 RF: 0 clopidogrel [Plavix] 75 mg Tablet 75 mg PO DAILY Qty: 30 RF: 0 Discontinued aspirin 325 mg Tablet 325 mg PO DAILY RF: 0 metoprolol succinate 50 mg Tablet Extended Release 24 Hr 50 mg PO DAILY RF: 0 simvastatin 40 mg Tablet 40 mg PO QPM RF: 0 No Action ramipril 10 mg Capsule 10 mg PO DAILY RF: 0 Ambulatory Orders / Order Sets / DME: Basic Metabolic Panel (Routine) Timeframe: 2 Weeks Location: Determined by Patient Ordered By: Debra Prado Complete Blood Count NO Diff (Routine) Timeframe: 2 Weeks Location: Determined by Patient Ordered By: Debra Prado XR chest 2V PA&LAT (Routine) Timeframe: 2 Weeks Location: Determined by Patient Ordered By: Debra Prado Referrals: SHARRI BOLDEN DR [Other] - See Instructions ( Your appointment has been scheduled for [10/03/18] at [10:00 am] If you cannot make this appointment, please call the office to reschedule ) [facility], [Agency] - See Instructions Debra Prado [ADVANCE RN PRACTITIONER] - See Instructions ( Your appointment has been scheduled for [09/29/18] at [11:00 am] If you cannot make this appointment, please call the office to reschedule ) Anthony Cote MD [Physician] - See Instructions ( Your appointment has been scheduled for [09/29/18] at [2:00 PM] If you cannot make this appointment, please call the office to reschedule ) Discharge Instructions Patient Printed Instructions: Chest Pain (ED) Additional Instructions: HOME HEALTH CARE HAS BE[facility], CONTACT # [phone] PREVENA Single Use Negative Wound Therapy System Caregiver Instruction Sheet 1. A Prevena dressing system was applied to the chest incision during surgery , to promote wound healing. It works via a suction device (negative pressure wound therapy) to remove low to moderate levels of exudate (drainage) and infectious materials. We recommend that the device stay in place for up to seven days, from day of surgery. 2. Day of Surgery__09/08/18 Day of Removal ____09/15/18 3. The dressing should only be removed by a health behavioral health care coordinator. Please arrange removal of device to coincide with Home Health visit and or with Nursing staff at Rehab 4. If skin reddening or irritation of skin occurs, or excessive drainage, please notify the Cardiovascular Surgeons office at [phone]. 5. Light showering is permissible; however the pump should be disconnected and placed in safe location, where it will not get wet. The dressing should not be exposed to direct spray or submerged in water. No bath tub / shower only. Ensure the end of the tubing attached to the dressing is facing down so that water does not enter the top of the tube. 6. To remove Prevena dressing: press purple button to turn off device / remove the suction. Then disconnect the tubing from the pump. The fixation strips should be stretched away from the skin and the dressing lifted at one corner and peeled back until it has been fully removed. 7. After removal, it is ok to shower daily using liquid dial soap and clean wash cloth, rinse and pat dry, and leave incision open to air dry. For any concerns regarding Prevena dressing, and or wounds, please contact Erma Marcum, patient navigator at [phone] or notify the Cardiovascular Surgeons office at [phone]. Incentive spirometry Q1 hr x 10, while awake, also use acapella device hourly whole awake Sternal Breast Bone Precautions: NO pushing or pulling, ( pt must use sternal pillow to support chest with all activities and with coughing ( takes up to 3 months breast bone to heal ) Daily incision care: ok to shower daily, no tub bath. Wash all incisions with liquid dial soap, clean wash cloth to each site, rinse and pat dry. Observe for any signs of infection, such as drainage which is dark yellow, gallegos, green or foul smelling. Immediately report to the surgeon any drainage from the chest incision, or legs, and for any abnormal drainage from the chest tube sites. Notify surgeon if any temp >101.5 degrees F. When specialty dressing removed/ or if you do not have one, continue to shower daily as above, then rinse and pat incision dry and paint with betadine daily x 5 days. Allow steri strips to fall off if you have any. Avoid lotions, creams, salves, oils, etc. for the first month Please see attached forms for additional instructions regarding post Open Heart specialty wound vacuum dressings. MYRNA or Prevena , Dressing to be removed by Nursing staff on __09/15/[address] Samano patients , please obtain CBC, BMP, PA & Lat CXR in 2 weeks, results to Dr. Samano ( prescription will be given) ( ) (Tele: [phone]) , F/U appointment: as per DC instructions: PCP in 2 weeks, CV surgeon 2 weeks, Cda Teacher 3-4 weeks For any questions regarding incisions/ dressing / meds / post op care or above Symptoms, Wednesday 8am-5pm Heart & Vascular Surgery Office ( Dr. Cardenas & Dr. Samano), After Hours / Nights (5pm -8am) Weekends and Holidays Please call [facility] ([facility]) Charge Nurse Post Discharge Care Plan Care Plan Goals: Your Health Problems: heart disease Goals to Promote Your Health: * To prevent worsening of your condition * To maintain your health at the optimal level Directions to Meet Your Goals: * Take your medications as prescribed * Follow your dietary instruction * Follow activity as directed * Keep your appointments as scheduled * Take your immunizations and boosters as scheduled * If your symptoms worsen call your PCP * If no PCP go to Urgent Care or Emergency Room Smoking is dangerous to your health. Avoid second hand smoke. You may reach the 24-hour crisis hotline for domestic abuse at . Status ED Status: Left Department
[2018-09-12] MEDS ORDERED: Amiodarone 200 MG Tablet PO SCH (09:00)
--- NOTE | 2018-09-12 11:51 | P.DIET ---
Nutritional Evaluation Type of nutrition evaluation: follow-up (Diet Education) Screening comments: MDC for Diet Education s/p CABG x 5 on (09/08) received. Patient Navigator to provide education. Consult RD if complexities with diet education arise. Assessment Assessment: Pt navigator contacted RD as pt was looking for further information regarding a heart healthy diet. Provided pt with handouts and explanations for low sodium diet, low saturated fat diet, increasing unsaturated fats and soluble fibers. Discussed meal planning and snacks. Pt was very knowledgeable already with his diet and provided great information and asked great questions. All questions were answered to pts expectations. Please consult RD if further complications arise. Recommendations: 1. Diet education provided with handouts 2. Plan to answer further questions as needed
--- NOTE | 2018-09-12 15:01 | P.PNCV ---
- Note Subjective/Hospital Course: A 58-year-old male who has history of coronary artery disease with prior stent x2 in 2003, who presented to work this morning and developed some midsternal chest pain 06/08 and felt diaphoretic, also nauseated and then presented to the emergency department, has not been feeling well for the past couple of months, feeling tired and fatigued. He described the pain as a band around his chest. This was the worst pain that he ever experienced. Pain lasted about 10 minutes and resided on its own. His EKG showed no acute change. 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 Cote, had a heart catheterization which showed an EF of 45%, left main disease of 40%, proximal LAD 70%, the diagonal 90%, the circ 70%, the OM 70%, RCA 70% the ramus was 95%. We were consulted to evaluate for coronary artery bypass grafting. PAST MEDICAL HISTORY: Includes coronary artery disease, hypertension, borderline diabetic, 09/07 pt had short episode of chest pain last night received dose of morphine / resolved pain, NTG ordered ( did not require starting) remains pain free at present carotid unremarkable US gallbladder : no gallstones, fatty liver stable for surgery in am add nitro paste 09/08 same Date of procedure: 09/08/18 Procedure: CABG x 5 SALINAS to LAD -good SVG to Ramus - fair SVG to D1 - good SVG to L PDA - good SVG to RCA - good EVH post EF 45% 3500cc crystalloid, 750cc cell saver extubated after surgery 09/09 pt up in chair, some anxiety , painful add prn xanax , increase dose of pain med and add toradol resume BB , shawn , scheduled diuresis leave chest tube in 09/10/18 Doing well, no complaints today Chest tube output 150ml/12 hrs 09/11/18 Doing very well, no complaints 09/12 on room air pain controlled / + BM stable for dc from CVS standpoint Objective: Vital Signs - 24 hr 09/11/18 15:00 09/11/18 15:47 09/11/18 16:00 Temperature 97.9 F Pulse Rate 72 74 70 Respiratory Rate 18 Blood Pressure 116/56 L Pulse Oximetry 97 09/11/18 16:47 09/11/18 16:50 09/11/18 19:00 Temperature Pulse Rate 68 68 75 Respiratory Rate Blood Pressure Pulse Oximetry 09/11/18 20:00 09/11/18 21:00 09/11/18 22:00 Temperature 97.6 F Pulse Rate 72 70 70 Respiratory Rate 16 Blood Pressure 120/88 Pulse Oximetry 99 09/11/18 22:15 09/11/18 23:00 09/12/18 00:00 Temperature 97.9 F Pulse Rate 66 78 Respiratory Rate 16 16 Blood Pressure 131/78 Pulse Oximetry 95 09/12/18 01:00 09/12/18 02:00 09/12/18 03:00 Temperature Pulse Rate 62 66 68 Respiratory Rate Blood Pressure Pulse Oximetry 09/12/18 03:20 09/12/18 04:00 09/12/18 06:55 Temperature 98.6 F Pulse Rate 76 88 Respiratory Rate 16 16 Blood Pressure 126/83 Pulse Oximetry 96 09/12/18 08:00 09/12/18 09:00 09/12/18 10:00 Temperature 98.4 F Pulse Rate 86 80 66 Respiratory Rate 18 Blood Pressure 126/72 Pulse Oximetry 95 09/12/18 10:52 09/12/18 11:00 09/12/18 12:00 Temperature 98.6 F Pulse Rate 76 68 Respiratory Rate 18 Blood Pressure 125/62 Pulse Oximetry 96 98 09/12/18 13:00 09/12/18 14:00 Temperature Pulse Rate 73 74 Respiratory Rate Blood Pressure Pulse Oximetry GENERAL: A&O x 3 SKIN: Warm and dry. prevena dressing to chest / incision intact to left leg HEAD: Normocephalic. EYES: No scleral icterus. No injection or drainage. NECK: Supple, trachea midline. No JVD or lymphadenopathy. CARDIOVASCULAR: Regular rate and rhythm without murmurs, gallops, or rubs. RESPIRATORY: Breath sounds equal bilaterally. No accessory muscle use. GASTROINTESTINAL: Abdomen soft, non-tender, nondistended. MUSCULOSKELETAL: No cyanosis, or edema. BACK: Nontender without obvious deformity. No CVA tenderness. Labs: Laboratory Results - last 12 hr 09/12/18 09/12/18 09/12/18 06:26 07:41 11:49 Sodium 135 L Potassium 4.5 Chloride 98 Carbon Dioxide 29.6 Anion Gap 7 BUN 20 H Creatinine 0.80 Estimated GFR Greater than 89 POC Glucose 105 80 Random Glucose 109 H Calcium 8.6 Magnesium 2.4 Result Diagrams: 09/10/18 04:45 09/12/18 06:26 Telemetry: NSR - Plan (1) Chest pain (2) Coronary artery disease (3) Hypertension (6) S/P coronary artery bypass graft x 5 Plan: Neuro: prn xanax pain control CV: ASA, statin, BB , amiodarone scheduled diuresis Resp: pulm toileting nebs, ezpap acapella GI: motility meds Endo: diabetic diet insulin sliding scale prophy: protonix, nebs CM to eval for HHC stable to dc home (1) Chest pain Qualifiers: Chest pain type: unspecified Qualified Code(s): R07.9 - Chest pain, unspecified (2) Coronary artery disease Qualifiers: Coronary Disease-Associated Artery/Lesion type: k[place] artery [place] vs. transplanted heart: koi heart Associated angina: without angina Qualified Code(s): I25.10 - Atherosclerotic heart disease of koi coronary artery without angina pectoris (3) Hypertension Qualifiers: Hypertension type: unspecified Qualified Code(s): I10 - Essential (primary) hypertension
== END 2018-09-12 19:15 | disposition home health service (06) | DRG 234 ==
LOC: NEDA 11:02 → NEPC 11:02 → NEPGCP 16:02 → HCIS 09-06 09:24 → HCPC 09-06 15:10 → HCVI 09-08 13:00 → HCPC 09-09 16:58
PROVIDERS: ADMIT Family Medicine; ATTEND Family Medicine
DX: Z91.040 Latex allergy status; F43.9 Reaction to severe stress, unspecified; E78.5 Hyperlipidemia, unspecified; E66.01 Morbid (severe) obesity due to excess calories; Z68.36 Body mass index [BMI] 36.0-36.9, adult; Z87.891 Personal history of nicotine dependence; R73.9 Hyperglycemia, unspecified; Z82.49 Family history of ischemic heart disease and other diseases of the circulatory system; Z95.5 Presence of coronary angioplasty implant and graft; Z79.899 Other long term (current) drug therapy; D72.829 Elevated white blood cell count, unspecified; I25.110 Atherosclerotic heart disease of native coronary artery with unstable angina pectoris; I10 Essential (primary) hypertension; Z79.82 Long term (current) use of aspirin; F41.9 Anxiety disorder, unspecified; R73.03 Prediabetes
CPT/HCPCS: 36430; 71010; 71045; 76705; 80048; 80053; 80061; 80069; 80076; 81001; 82550; 82948; 82962; 83036; 83735; 84484; 85014; 85025; 85027; 85610; 85730; 86850; 86900; 86901; 86923; 87086; 87640; 87641; 93005; 93017; 93306; 93312; 93318; 93458; 93880; 93965; 93970; 93998; 94002; 94010; 94150; 94640; 94650; 94651; 94656; 94664; 94665; 94667; 96374; 96376; 97110; 97116; 97162; 97530; 99152; 99285; C1769; C1893; C9248; G0378; J0131; J0690; J1644; J1650; J1815; J1817; J1885; J1940; J2150; J2250; J2270; J2440; J2930; J3010; J3370; J7120; P9016; P9045; P9047; Q9967